=== PATIENT | female | born 1990 | race Caucasian/White ===

== ENCOUNTER 2016-12-24 23:36 | Emergency (ER) | payer BC ==
[2016-12-24 23:42] VITALS: PULSE 91
--- NOTE | 2016-12-25 00:55 | ED ---
General Adult HPI - General Chief complaint: Skin/Abscess/Foreign Body Stated complaint: Hives Time Seen by Provider: 12/25/16 00:43 Source: patient, RN notes reviewed, old records reviewed Mode of arrival: ambulatory Limitations: no limitations - History of Present Illness Initial comments: This is a 26 year old female with pruritic rash over hands, arms, neck and back for 1 month. She thinks this is hives. She reports to taking benadryl with no relief. Denies any history with others with rash. She states that she shares a bed with , denies travel history. Patient reports that she has had no fever, chills, chest pain, shortness of breath, new exposures, nausea, vomiting. - Related Data Previous Rx's Medication Instructions Recorded EPINEPHrine [Epipen 2-Harlan] 0.3 mg IM ONCE PRN #2 ml 12/27/13 Permethrin 5% Cream [Elimite] 1 applic TOPICAL ONCE #1 tube 12/25/16 methylPREDNISolone Dose Pack 4 mg PO DIRECTED #21 package 12/25/16 [Medrol Dose Pack] Allergies Allergy/AdvReac Type Severity Reaction Status Date / Time No Known Allergies Allergy Verified 12/24/16 23:41 Review of Systems ROS Statement: Those systems with pertinent positive or pertinent negative responses have been documented in the HPI. ROS Other: All systems not noted in ROS Statement are negative. Past Medical History Past Medical History: No Reported History History of Any Multi-Drug Resistant Organisms: None Reported Past Surgical History: Appendectomy Past Psychological History: ADD/ADHD, Bipolar Smoking Status: Former smoker Past Alcohol Use History: Occasional General Exam - General Exam Comments Initial Comments: This is a 26 year old female, no distress. Limitations: no limitations General appearance: alert, in no apparent distress Head exam: Present: atraumatic, normocephalic, normal inspection Eye exam: Present: normal appearance, PERRL, EOMI. Absent: scleral icterus, conjunctival injection, periorbital swelling ENT exam: Present: normal exam, mucous membranes moist Neck exam: Present: normal inspection. Absent: tenderness, meningismus, lymphadenopathy Respiratory exam: Present: normal lung sounds bilaterally. Absent: respiratory distress, wheezes, rales, rhonchi, stridor Cardiovascular Exam: Present: regular rate, normal rhythm, normal heart sounds. Absent: systolic murmur, diastolic murmur, rubs, gallop, clicks GI/Abdominal exam: Present: soft, normal bowel sounds. Absent: distended, tenderness, guarding, rebound, rigid Extremities exam: Present: normal inspection, full ROM, normal capillary refill. Absent: tenderness, pedal edema, joint swelling, calf tenderness Back exam: Present: normal inspection Neurological exam: Present: alert, oriented X3, CN II-XII intact Psychiatric exam: Present: normal affect, normal mood Skin exam: Present: warm, dry, intact, normal color, rash (erythematous papular rash with excoriation over back, hands, forearms. Rash in webspace of fingers. Rash consistent with scabies. ) Course Vital Signs 12/24/16 12/25/16 23:39 01:14 Temperature 99.7 F H 98.2 F Pulse Rate 91 91 Respiratory 20 18 Rate Blood Pressure 141/88 140/90 O2 Sat by Pulse 98 98 Oximetry Medical Decision Making - Medical Decision Making This is a 26 year old female with pruritic rash over hands, arms, neck and back for 1 month. She thinks this is hives. She reports to taking benadryl with no relief. Denies any history with others with rash. She states that she shares a bed with , denies travel history. Patient reports that she has had no fever, chills, chest pain, shortness of breath, new exposures, nausea, vomiting. Patient length of symptoms nad not responding to benadryl make this rash seem like Scabies. Patient has erythematous papules between webspace of fingers, and rash clinically looks like scabies vs. hives. Patient was instructed on washing bedding and all clothes in hot water, and to have close contacts treated as well. Patient will also be discharged with medrol dose pack , as this may help with pruritis and if there is underlying hive like reaction. Patient will be discharged and return parameters discussed. Disposition Clinical Impression: Scabies Disposition: HOME SELF-CARE Condition: Good Instructions: Scabies (ED) Additional Instructions: Patient is to watch all clothing and bedding in hot water. Patient is to apply the cream from head to toe and sleep with and on. Shower in the morning. Repeat treatment in one peak. Patient can take Benadryl for itching. He can also use the steroid Dosepak that may help with itching as well. Prescriptions: methylPREDNISolone Dose Pack [Medrol Dose Pack] 4 mg PO DIRECTED #21 package Permethrin 5% Cream [Elimite] 1 applic TOPICAL ONCE #1 tube Referrals: John Olivarez MD [Primary Care Provider] - 1-2 days Time of Disposition: 00:53
[2016-12-25 01:18] VITALS: BP 140/90; RESP 18; TEMP 98.2
== END 2016-12-25 01:20 | disposition home or self-care (01) ==
LOC: EC 23:36
DX: B86 Scabies (principal); Z87.891 Personal history of nicotine dependence
CPT/HCPCS: 99283

== ENCOUNTER → 2017-10-23 | Outpatient (CLI) | payer BC ==
[2017-10-23 12:16] LABS: ALT 50 U/L (9-52); AST 37 U/L (14-36); Albumin 4.8 g/dL (3.5-5.0); Alkaline Phosphatase 70 U/L (38-126); Anion Gap 15 mmol/L; Blood Urea Nitrogen 14 mg/dL (7-17); Calcium 9.7 mg/dL (8.4-10.2); Carbon Dioxide 24 mmol/L (22-30); Chloride 102 mmol/L (98-107); Glucose 95 mg/dL (74-99); Potassium 4.5 mmol/L (3.5-5.1); Sodium 141 mmol/L (137-145); Total Bilirubin 0.8 mg/dL (0.2-1.3); Total Protein 7.6 g/dL (6.3-8.2)
[2017-10-23 16:19] LABS: Parathyroid Hormone Intact 34.9 pg/mL (14.0-72.0); Vitamin D 25 Hydroxy 22.5 ng/mL (30.0-100.0)
[2017-10-23 16:22] LABS: Thyroid Peroxidase Antibodies <28.0 U/mL (0.0-60.0)
== END | disposition home or self-care (01) ==
LOC: LABWHC1 11:14
PROVIDERS: ATTEND Internal Medicine Endocrinology, Diabetes & Metabolism
DX: E83.52 Hypercalcemia (principal); E03.8 Other specified hypothyroidism; N91.2 Amenorrhea, unspecified
CPT/HCPCS: 36415; 80053; 82306; 82670; 83001; 83002; 83970; 84146; 84439; 84443; 84480; 86376

== ENCOUNTER → 2017-12-04 | Outpatient (CLI) | payer BC | END | disposition home or self-care (01) | LOC: LABWHC1 10:31 | PROVIDERS: ATTEND Internal Medicine Endocrinology, Diabetes & Metabolism | DX: E03.8 Other specified hypothyroidism (principal) | CPT/HCPCS: 36415; 84443 ==

== ENCOUNTER → 2019-11-06 | Outpatient (CLI) | payer BC ==
[2019-11-06 15:58] LABS: T4, Free (Free Thyroxine) 1.3 ng/dL (0.80-1.80)
== END | disposition home or self-care (01) ==
LOC: LABWHC1 10:34
PROVIDERS: ATTEND Internal Medicine
DX: E03.9 Hypothyroidism, unspecified (principal)
CPT/HCPCS: 36415; 82947; 84439; 84443; 84481

== ENCOUNTER → 2020-09-19 | Outpatient (CLI) | payer BC ==
--- NOTE | 2020-09-19 10:01 | ECHOF ---
Referral Reason:R07.9 chest pain MEASUREMENTS -------- HEIGHT: 154.9 cm WEIGHT: 86.2 kg BP: RVIDd: 2.9 cm (< 3.3) IVSd: 0.9 cm (0.6 - 1.1) LVIDd: 4.8 cm (3.9 - 5.3) LVPWd: 1.1 cm (0.6 - 1.1) IVSs: 1.5 cm LVIDs: 2.9 cm LVPWs: 1.7 cm LAESV Index (A-L): 18.77 ml/m Ao Diam: 2.7 cm (2.0 - 3.7) AV Cusp: 2.0 cm (1.5 - 2.6) MV EXCURSION: 21.714 mm (> 18.000) MV EF SLOPE: 128 mm/s (70 - 150) EPSS: 0.3 cm MV E Donald: 0.69 m/s MV DecT: 167 ms MV A Donald: 0.49 m/s MV E/A Ratio: 1.42 RAP: 5.00 mmHg RVSP: 22.71 mmHg FINDINGS -------- Sinus rhythm. This was a technically difficult study with suboptimal apical views. The left ventricular size is normal. Left ventricular wall thickness is normal. Overall left vent ricular systolic function is normal with, an EF between 55 - 60 %. The diastolic filling pattern is normal for the age of the patient 7.54. The right ventricle is normal in size. Normal LA size by volume 22+/-6 ml/m2. The right atrium was not well visualized. 5.0mg of Lumason was utilized for enhancement of images Interatrial and interventricular septum intact. There is no evidence of aortic regurgitation. There is no evidence of aortic stenosis. No mitral regurgitation. Mild tricuspid regurgitation present. There is no evidence of pulmonary hypertension. The right v entricular systolic pressure, as measured by Doppler, is 22.71mmHg. Trace/mild (physiologic) pulmonic regurgitation. The aortic root size is normal. IVC Not well visulized. There is no pericardial effusion. CONCLUSIONS -------- 1. The left ventricular size is normal. 2. Left ventricular wall thickness is normal. 3. Overall left ventricular systolic function is normal with, an EF between 55 - 60 %. 4. The diastolic filling pattern is normal for the age of the patient 7.54 5. Mild tricuspid regurgitation present. 6. Trace/mild (physiologic) pulmonic regurgitation. EVP CHIEF EXPLORATION OFFICER: Jennifer Henley RDCS
== END | disposition home or self-care (01) ==
LOC: RADECHMAIN 08:10
PROVIDERS: ATTEND Internal Medicine
DX: I07.1 Rheumatic tricuspid insufficiency (principal); I37.1 Nonrheumatic pulmonary valve insufficiency
CPT/HCPCS: 93306; Q9950

== ENCOUNTER → 2021-12-04 | Outpatient (CLI) | payer BC ==
--- NOTE | 2021-12-04 16:38 | MR ---
EXAMINATION TYPE: MR lumbar spine wo con DATE OF EXAM: 12/04/2021 COMPARISON: None HISTORY: Low back pain TECHNIQUE: Multiplanar, multisequence images of the lumbar spine were acquired without IV contrast. L1-L2: Normal disc appearance without desiccation. No herniation, protrusion or disc bulging. No ca nal stenosis is present. Foramina are patent bilaterally. L2-L3: Normal disc appearance without desiccation. No herniation, protrusion or disc bulging. No ca nal stenosis is present. Foramina are patent bilaterally. L3-L4: Normal disc appearance without desiccation. No herniation, protrusion or disc bulging. No ca nal stenosis is present. Foramina are patent bilaterally. L4-L5: Increased signal posterior aspect of the disc is consistent with annular tear. No significant foraminal encroachment. Posterior disc bulge causes contact the anterior thecal sac. L5-S1: Posterior disc bulge is noted. There is a mild anterolisthesis grade 1 L5-S1. Suspect spondylo lysis at L5 bilaterally. Listhesis contributes to cause some foraminal encroachment. Lumbar segments are intact. No paraspinal masses are identified. Conus medullaris has a normal appe arance. Is no evident spinal stenosis. Loss of disc height signal is present L4-5 and L5-S1, there is associated endplate discogenic marrow signal change. Multiple level Schmorl's node formation is pres ent. 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
== END | disposition home or self-care (01) ==
LOC: RADMRIMAIN 15:25
PROVIDERS: ATTEND Internal Medicine
DX: M51.26 Other intervertebral disc displacement, lumbar region (principal); M43.16 Spondylolisthesis, lumbar region
CPT/HCPCS: 72148

== ENCOUNTER → 2022-04-12 | Outpatient (CLI) | payer BC | END | disposition home or self-care (01) | LOC: LABPAT 10:22 | PROVIDERS: ATTEND Orthopaedic Surgery | DX: Z01.812 Encounter for preprocedural laboratory examination (principal); Z22.322 Carrier or suspected carrier of Methicillin resistant Staphylococcus aureus; M47.816 Spondylosis without myelopathy or radiculopathy, lumbar region; M43.16 Spondylolisthesis, lumbar region | CPT/HCPCS: 87070 ==

== ENCOUNTER → 2022-04-20 | Outpatient (CLI) | payer BC ==
[2022-04-20 14:17] LABS: Basophils # (A) 0.03 X 10*3/uL (0.00-0.10); Basophils % (A) 0.5 %; Eosinophils # (A) 0.14 X 10*3/uL (0.04-0.35); Eosinophils % (A) 2.6 %; HCT 47.7 % (37.2-46.3); HGB 16.3 g/dL (12.0-15.0); Immature Grans, Automated 0.7 %; Lymphocytes # (A) 1.36 X 10*3/uL (0.90-5.00); Lymphocytes % (A) 24.9 %; MCH 30.4 pg (27.0-32.0); MCHC 34.2 g/dL (32.0-37.0); MCV 88.8 fL (80.0-97.0); Mean Platelet Volume 10.4 fL (9.5-12.2); Monocytes # (A) 0.39 X 10*3/uL (0.20-1.00); Monocytes % (A) 7.1 %; NRBC Per 100 WBC 0 /100 WBCS (0.0-0.0); Neutrophils % (A) 64.2 %; Platelet Count 338 X 10*3/uL (140-440); RBC 5.37 X 10*6/uL (4.10-5.20); RDW 12.6 % (11.5-14.5); WBC 5.46 X 10*3/uL (4.50-10.00)
[2022-04-20 14:19] LABS: African American GFR (CKD) 112.9 (60.0-200.0); Anion Gap 15.1 mmol/L (10.00-18.00); BUN/Creat Ratio 15.09 Ratio (12.00-20.00); Blood Urea Nitrogen 12.3 mg/dL (9.0-27.0); Calcium 9.9 mg/dL (8.7-10.3); Carbon Dioxide 23.4 mmol/L (20.0-27.5); Non-African American GFR(CKD) 97.4 (60.0-200.0); Potassium 4.4 mmol/L (3.5-5.5)
[2022-04-20 15:12] LABS: INR 0.88 (0.90-1.11)
== END | disposition home or self-care (01) ==
LOC: LABPAT 09:48
PROVIDERS: ATTEND Orthopaedic Surgery
DX: Z01.812 Encounter for preprocedural laboratory examination (principal)
CPT/HCPCS: 36415; 80048; 85025; 85610; 93005

== ENCOUNTER 2022-04-24 08:30 | Observation (INO) | payer BC ==
[2022-04-16 13:13] VITALS: BMI 32.5
--- NOTE | 2022-04-24 06:33 | P.HPOR ---
History of Present Illness H&P Date: 04/13/22 .D:Date: 04/13/22 : 09:15am .T:Title: [facility] History and Physical Date of :[birth year] Age: 31 year Height: 5'1" Weight: 198 lbs BMI: 37.41 kg/m2 Occupation: Factory VAS: 0 CHIEF COMPLAINT: L5-S1 Spondylolysis DOI:chronic DOS: none Duration of current treatment regiment: none HISTORY: Xrays none Trauma or injury No Work-Related No Pain description aching, sharp, and burning Location diffuse Patient notes that their pain radiates to right lower extremity Activity Modification yes Hand Dominance right TREATMENTS COMPLETED: 6 weeks of PT completed? Month and Year of last PT date? yes, 12 sessions some relief Physician recommended home exercise completed? Duration of HEP course: yes Patient has trialed the physician directed home exercise program for with relief of their symptoms. Medications yes List: Flexeril with relief, Baclofen QHS with mild relief with aid with sleep. no NSAID's, no UMESH-analogs Alternative interventions Chiropractic: No Massage therapy: No R.I.C.E: No Brace: No Injections No RFA: No DELGADO BJECTIVE: Ms. Tristan returns to the office for a pre-operative recheck of their low back pain and planned L5-S1 MIS TLIF. Patient reports no improvements to her symptoms since the time of the last appointment. Patient continues to complain of aching, sharp, burning lumbar pain with diffuse bilateral lower extremity radicular pain and numbness/tingling. Overall the patient has seen a progressive increase in symptoms since their onset. Ms. Tristan symptoms are exacerbated with any st anding, ambulation, or high impact movements like walking up and down stairs, due to this they notes that it is increasingly difficult for Ms. Tristan to complete many of their daily tasks. Patient is having severe sleep disturbances as well due to their ongoing pain and associated symptoms. Regarding treatments, the patient has previously trialed all abovementioned treatment modalities without relief of his symptoms. Patient denies trialing any other modalities at this time. Otherwise the patient denies any f/c/sob/cp, no bladder or bowel retention/incontinence, no perineal numbness/tingling, and ambulates independently. HISTORY: Ms. Tristan last presented to the office on 02/01/2022 for re-check L5-S1 spondylosis. . Patient reports aching, sharp, and burning lumbar pain ongoing for 1 year with no known injury or trauma to indicate an exact onset of their symptoms. In addition to their lumbar pain, they do report that it radiates into the bilateral lower extremities, associated withnumbness and tingling through the legs. Overall the patient has seen a progressive increase in symptoms since their onset. Ms. Tristan symptoms are exacerbated with daily activity, due to this they notes that it is increasingly difficult for Ms. Flores ey to complete many of their daily tasks. Patient is having mild sleep disturbances as well due to their ongoing pain and associated symptoms. Regarding treatments, the patient has previously trialed physical therapy with no relief. Patient denies trialing any other modalities at this time. For their symptoms, the patient has been taking Flexeril. Otherwise the patient denies any f/c/sob/cp, no incision concerns, no bladder or bowel retention/incontinence, no perineal numbness/tingling, and ambulates independently. Ms. Tristan was last seen on 01/29/22 regarding her low back pain.Since last v isit patient states there have been no changes in her symptoms. Patient continues to report a sharp burning lumbar pain that radiates into the right lower extremity associated with numbness and tingling through the leg diffusely. Since her previous visit patient has completed physical therapy. Patient states that using heat therapy slightly relieves her symptoms. Otherwise the patient denies any f/c/sob/cp, no bladder or bowel retention/incontinence, no perineal numbness/tingling, and ambulates independently. Ms. Tristan was last seen on 12/19/21 regarding an evaluation of their low back p ain. Patient reports a sharp, burning lumbar pain ongoing for 1 year with no known injury or trauma to indicate an exact onset of their symptoms. In addition to their lumbar pain, they do report that it radiates into the right lower extremity, associated with numbness and tingling through the leg diffusely. Overall the patient has seen a progressive increase in symptoms since their onset. Ms. Tristan symptoms are exacerbated with prolonged standing and ambulation, due to this they notes that it is increasingly difficult for Ms. Tristan to complete many of their daily tasks. Patient is having mild sleep disturbances as well due to their ongoing pain and associated symptoms. Regarding treatments, the patient has previously trialed home exercises and Baclofen QHS. Patient denies any relief with the home exercises but some mild relief with the Baclofen. Patient denies trialing any other modalities at this time. Otherwise the patient denies any f/c/sob/cp, no bladder or bowel retentio n/incontinence, no perineal numbness/tingling, and ambulates independently. The patients' past social, medical, family, surgical history, as well as review of systems, have been reviewed. Please refer to the Neurosurgery History and Physical form that has been scanned in to our electronic medical record system. 16 points review of systems completed and as stated in HPI, all other systems reviewed are negative. [id number] History: Smoking: none P3 Alcohol: none P3 Family History: Reviewed, see appropriate section of the chart for details. P2 Past Medical History: Reviewed, see appropriate section of the chart for details. [id number] Medications: Rx: cyclobenzaprine 5 mg tablet Ref: 0 Rx: levothyroxine 100 mcg capsule Ref: 0 PHYSICAL EXAMINATION: General: Awake, alert, appropriate for age, in no acute distress. HEENT: No unusual neck masses around region of lateral neck triangle, thyroid, supraclavicular groove Heart: Regular rate and rhythm, normal S1, S2 and no murmur/gallop. Lungs: Clear to auscultation bilaterally with no use of accessory muscles. Extremities: Skin warm and dry without acute lesions, coloration, temperature, skin intact, no tenderness or erythema Integument: Hairy patches: ABSENT Dorsal skin dimples: ABSENT Cafe au lait spots: ABSENT Surgical incisions: NONE Palpation: Please see Pain drawing on Intake sheet for further detail. Midline spinal tenderness: No E6 Cervical Tenderness: No E6 Paralumbar tenderness: No E6 Parathoracic tenderness: No E6 Buttocks tenderness: No E6 POSTURAL and MUSCULO-SKELETAL EVALUATION: Coronal Balance: NEUTRAL Recumbent testing: Patient is able to lay flat on back Sagittal Balance: NEUTRAL Shoulder Profile: LEVEL Pelvic Girdle: LEVEL Neck ROM: UNRESTRICTED Lumbar ROM: RESTRICTED Shoulder ROM: Symmetrical Hip ROM: Symmetrical Knee ROM: Symmetrical Hands: Normal appearance, symmetrical Feet: Normal appearance, Symmetrical VASCULAR STATUS : LEFT RIGHT Wrist Pulses INTACT INTACT Pedal Pulses (Dors. pedis & post.tibialis) INTACT INTACT Color NORMAL NORMAL Edema Absent Absent NEUROLOGIC EXAMINATION: Mental Status:Awake and alert, fully oriented, with normal attention, concentration and memory, and fluent, appropriate speech. Cranial Nerves: I: Olfactory not tested. II: Visual acuity normal, no visual field deficit noted with confrontation. III,IV: Normal pupillary reflexes & intact extraocular movements without nystagmus. V,: Intact symmetrical facial sensation. VII: Intact symmetrical facial motor movement VIII: Hearing intact. IX,X: Intact gag, swallow, & normal voice. XI: Sternocleidomastoid, trapezius function intact. XII: Tongue midline with normal movements. L'hermitte's Sign: Negative / absent Spurling'Sign: Absent bilaterally. Cubital percussion test: Absent bilaterally. Wyman-Tinel sign - Carpal region: Absent bilaterally. Straight Leg Raising: Absent bilaterally. Crossed straight leg raise: negative O8 MOTOR EXAM (0-5/5, N/T) UPPER EXTREMITY Shoulder Abduction Biceps Triceps Wrist Extension Hand Intrinsics Can Washer Right 5/5 5/5 5/5 5/5 5/5 5/5 Left 5/5 5/5 5/5 5/5 5/5 5/5 LOWER EXTREMITY Hip Flexion Knee Extension Knee Flexion DF PF EHL FHL Right 5/5 5/5 5/5 4+/5 4+/5 5/5 5/5 Left 5/5 5/5 5/5 5/5 5/5 5/5 5/5 REFLEXES(0-4/2, NT)Upper ExtremityLower Extremity Right 2 2 Left 2 2 Pathological Reflexes RIGHT LEFT Wyman's Absent Absent Clonus Absent Absent Babinski Absent Absent # Indicates mechanical impairment Muscle appearance: Symmetrical, without signs of atrophy or dystrophy. Sensory system (0-4, N/T) Test type RU CAMMIE RL LL Joint-Position 2 2 2 2 Vibration 2 2 2 2 Pain & LT sense 2 2 2 2 Dermatomal Deficit: None None L5-S1 None Gait and Functional Evaluation: Ambulatory aids: Independent Romberg's test: Intact bilaterally Toe heel walk / heel-toe walk intact while maintaining satisfactory balance? yes Squatting/straightening w/o assistance to a min of 60 degree knee flexion? yes Single leg stance: intact Trendelenburg sign negative bilaterally Hand and finger dexterity intact bilaterally? yes Disdiadochokinesis examination negative bilaterally? yes RADIOGRAPHIC STUDIES: XRay Lumbar Multiview (AP, Lateral, Flexion, Extension) with AP pelvis; 5 views taken on 12/19/21 completed at [facility] of Lumbar Spine and Pelvis: Lumbar spine alignment appears normal. Vertebral body heights are preserved. Diminished disc height throughout. Grade 1 anteriolisthesis L5 onto S1. No acute osseous abnormalities. MRI taken on 12/04/21 at [facility] of Lumbar Spine: Lumbar segments are intact. No paraspinal masses are identified. Conus medullaris has a normal appearance. Is no evident spinal stenosis. Loss of disc height signal is present L4-5 and L5-S1, there is associated endplate discogenic marrow signal change. Multiple level Schmorl's node formation is present. IMPRESSION: Degenerative disc disease as described with anterolisthesis grade 1 L5-S1, suspect bilateral spondylolysis at L5. IMPRESSION: It was my pleasure to have seen and examined Ruma. I reviewed the patient's clinical syndrome, physical findings, and imaging studies during the appointment today. It is my impression that the patient has a diagnosis of. 1. L5-S1 spondylolysis with listhesis 2. right lower extremity paresthesias 3. mechanical lower back pain 4. right lower extremity weakness I outlined the natural course history without intervention and various interventional options. PLAN: Based on my findings I suggest the following course of action: -Ordered a CT scan without contrast of the lumbar spine to further define and outline her bony pathology and for pre-operative planning. - I discussed treatment options with the patient, including operative and non- operative options, and they have elected to proceed with the following surgical procedure: lumbar minimally invasive L5-S1 Transforaminal Lumbar Interbody Fusion The indications, risks, benefits, and alternatives to surgery were discussed with the patient at length. Specifically (but not limited to) the risks of infection, stiffness, recurrence of symptoms, need for revision surgery, local numbness, neurovascular injury, and blood clots were discussed. The patient's questions were answered. The decision to proceed was made. Consent will be obtained for the procedure. I recommended that the patient be off work post op for 6-8 weeks. -Advised patient to continue with supplements, health maintenance, and home exercise programs. Patient expressed understanding and will continue with these modalities. -Ambulate daily -Take medications as directed -Ice and rest for pain and swelling control. Spine Surgery Risk Review Ms. Tristan is presenting for evaluation of low back pain and right lower extrem ity radiculopathy. It was my pleasure to have seen and examined Ms. Tristan. In our visit today we have had a chance to go over subjective complaints, physical examination findings and treatments including the natural course history without intervention and various interventional options. The patients imaging demonstrates: XRay taken on 12/19/21 of Lumbar Spine and Pelvis: Lumbar spine alignment appears normal. Vertebral body heights are preserved. Diminished disc height throughout. Grade 1 anteriolisthesis L5 onto S1. No acute osseous abnormalities. MRI taken on 12/04/21 of Lumbar Spine: Lumbar segments are intact. No paraspinal masses are identified. Conus medullaris has a normal appearance. Is no evident spinal stenosis. Loss of disc height signal is present L4-5 and L5-S1, there is associated endplate discogenic marrow signal change. Multiple level Schmorl's node formation is present. IMPRESSION: Degenerative disc disease as described with anterolisthesis grade 1 L5-S1, suspect bilateral spondylolysis at L5. On physical exam, Ms. Tristan demonstrates severely restricted lumbar range of motion with right lower extremity radiculopathy and weakness with plantarflexion/dorsiflexion. Furthermore the patient does demonstrate L5-S1 right lower extremity dermatomal deficits upon testing. I have explained to the patient that as their condition progresses it will cause further neurological deficits and eventual paralysis. Based on the patients imaging, physical exam, and the rapid progression and disabling nature of their symptoms, at this time I recommend surgery in the form or a: minimally invasive L5-S1 Transforaminal Lumbar Interbody Fusion minimally invasive L5-S1 Transforaminal Lumbar Interbody Fusion. I discussed the risk and benefits of this procedure at length with Ms. Tristan. The patient agreed to considered pursuing the procedure above mentioned. Prior to surgery, she should follow up with her PCP (Cardio, ID, IM etc) for clearance. Questions were invited and answered, and the patient wishes to proceed as outlined below. Currently, I am recommendin. minimally invasive L5-S1 Transforaminal Lumbar Interbody Fusion 2.Follow up with PCP for surgical clearance 3.Review of surgical risks and benefits as well as an educational packet on the proposed surgical procedure. Risks: All surgical procedures come with inherent risks, including those related to positioning, anesthesia, intraoperative findings, and postoperative complications. It is important to understand that surgery does not come with any guarantee of a successful outcome as complications and adverse events are always possible. The patient was given a handout in office today discussing the surgical procedure and risks associated with the intervention, both of which were discussed with the patient. These risks include but are not limited to the following: * Experiencing same, different or even worse symptoms in back, neck, arms, or legs compared to before surgery. Requiring further surgery or other forms of treatment presently or at some time in the future at same or other levels of the intended spine surgery. On an extreme but fortunately relatively rare basis severe complication such as blindness, stroke, heart attack, temporary and/or permanent nerve injury, paralysis, coma, or may occur, sometimes without known explanation. Surgical complications may include but are not limited to risk of infection, fluid accumulation in the surgical dissection site, including a seroma or hematoma, that requires additional surgery, wound drainage, bleeding, new numbness or weakness, vision changes/loss, spinal fluid leakage, non-healing and/or infected incision, headaches, difficulty or inability to swallow, hoarseness, hemopneumothorax, pneumothorax, impotence, retrograde ejaculation, vaginal dryness; injury to nerves, spinal cord, blood vessels, lymphatics or other vital organs (i.e., bowel injury, injury to the great vessels); heterotopic bone formation; complications related to the hardware such as screws, rods, cages including misplaced hardware, device failure, instrumentation at the wrong spine level, hardware fracture/breakage, or hardware loosening; vertebral failure of the spinal column above or below the newly placed hardware; retained surgical instrumentations or devices and the need for further surgery. * Medical risks of the planned spine surgery include but are not limited to generalized Infections to the whole body or local areas outside of the surgical site (sepsis), heart attack, bleeding, anaphylaxis, meningitis, seizure, epilepsy, hearing loss, burn cazares, laceration of the head or other areas of the body, bruising, hypersensitivity of the skin, bladder over distension; allergic reaction; shoulder injury related to positioning; fat, blood and air clots to other areas of the body like heart, lungs, brain; failure of internal organs such as lungs, kidneys, liver and excessive bleed ing. If blood transfusions are necessary, note that transfusions may cause intolerance reactions such as anaphylaxis or other complex reactions. Despite best efforts, the results of spine surgery might not heal in terms of bone, soft tissues such as skin, fascia, ligaments, and joints. Additionally, in order to achieve best possible results, spine surgery may be carried out beyond the initially planned levels and involve decompression, fusion including insertion of hardware at levels other than the original intended area of surgical interest change some portions of the procedure in order to ensure the best possible outcomes. With spine surgery and spinal fusion, there are different off label uses of instrumentation (devices, implants and hardware) as well as biological substances (bone morphogenic proteins, demineralized bone matrix) as well as using extra bone from allograft sources (i.e. cadaver bone) or autograft (iliac crest bone, ribs, or the spine itself). The patient has been given information about these practices and their inherent risks and benefits. [facility] is an educational center that serves as a training facility for neurosurgical and orthopedic PHYS ASSISTANT and Nursing students. Physician assistants are medically trained surgical providers who function in the outpatient, inpatient, and operating room setting under the direct supervision of the attending surgeon. [facility] has multiple operating rooms with single and overlapping rooms running daily. They currently function under the required guidelines as produced by the [facility] with regards to the overlapping rooms and will continue to comply with changes to this policy as they occur. The requirements include and are complied with as follows: (1) the critical portions of the overlapping rooms will not occur at the same time, (2) the attending physician will be physically present during the critical portions of the procedure and immediately available during the entire case, and (3) a back-up attending is designated should the primary attending not be immediately available. The patient has had a chance to review all the listed information, has been given print outs detailing this information, and has had all his/her questions answered to their satisfaction. It was my pleasure to have seen and examined Ms. Tristan. In our visit today we have had a chance to go over my understanding of our patient's current condition, the natural course history without intervention and various interventional options. Questions were invited and answered, and the patient wishes to proceed as outlined above. I have seen and examined the patient for 25 minutes and we have spent more than 50% of the time in repeat and detailed counseling about the patient's condition, its natural course history with out and as much as can be predicted with surgery and re-review of various surgical treatment options. In conclusion, Ms. Tristan requested we proceed with the above suggested surgery and are willing to accept risks and limitations of the suggested surgery as nature of the disease process and our best attempts at treatment for the condition. Thank you again for allowing us to be part of your patient's care. Please don't hesitate to contact me if you have any further questions. Signed and authenticated by: Jose Boggs DO [facility] Complex and Minimally Invasive Spine Surgery [address] [place] [address] Follow- up: 2 weeks post-op Patient Education: (Informational booklet, instructions, etc) given at today's appointment: Yes .ED:Patient Education: Y Plan at next visit: Medications Reviewed: YES In our visit today Ms. Tristan and I have had a chance to go over my understanding of the patient's current condition, the natural course history without intervention and various interventional options. Questions were invited and answered, and the patient wishes to proceed as outlined above. I will be sure to keep you updated afterMs. Tristan returns here for further follow-up. Thank you again for your referral. Please do not hesitate to contact me if you have any further questions. Signed and authenticated by: Jose Velázquez [place] [facility] and Minimally Invasive Spine Surgery [address] [place] [address] This message is confidential, intended only for the named recipient(s) and may contain information that is privileged or exempt from disclosure under applicable law. If you are not the intended recipient(s), you are notified that the dissemination, distribution or copying of this information is strictly prohibited. If you received this message in error, please notify the sender then delete this message. Patient verbalizes understanding of the information discussed. Past Medical History Past Medical History: No Reported History Additional Past Medical History / Comment(s): BACK PAIN History of Any Multi-Drug Resistant Organisms: None Reported Past Surgical History: Appendectomy Past Anesthesia/Blood Transfusion Reactions: No Reported Reaction Smoking Status: Former smoker - Past Family History Mother Family Medical History: No Reported History Medications and Allergies Home Medications Medication Instructions Recorded Confirmed Type Levothyroxine Sodium [Synthroid] 100 mcg PO DAILY 04/16/22 04/16/22 History Allergies Allergy/AdvReac Type Severity Reaction Status Date / Time No Known Allergies Allergy Verified 04/16/22 13:00 Physical Examination Osteopathic Statement: *. No significant issues noted on an osteopathic structural exam other than those noted in the History and Physical/Consult.
[~2022-04-24 08:30] MED LIST: ACETAMINOPHEN TAB 500 MG TAB PO PRN; DEXAMETHASONE SOD PHOSPHATE 4 MG/ML 1 ML VIAL IV ONE; GABAPENTIN 300 MG CAP PO PRN; ONDANSETRON 4 MG/2 ML VIAL IVP PRN; TRANEXAMIC ACID IN NACL,ISO-OS 1,000 MG in SALINE 1 100ML.BAG IVPB PRN
[2022-04-24] MEDS: LACTATED RINGERS 1,000 ML IV SCH (09:40)
[2022-04-24] MEDS: ONDANSETRON 4 MG/2 ML VIAL IVP ONE ×2 (09:44→12:55)
[2022-04-24] MEDS ORDERED: LIDOCAINE 2% INJ 20 MG/ML (2 ML VIAL) ONE (09:57)
[2022-04-24] MEDS ORDERED: TRANEXAMIC ACID IN NACL,ISO-OS 1,000 MG/100 ML BAG ONE (09:57)
[2022-04-24] MEDS ORDERED: MIDAZOLAM 2 MG/2 ML VIAL ONE (09:57)
[2022-04-24] MEDS ORDERED: PROPOFOL 10 MG/ML 20 ML VIAL IV ONE (09:57)
[2022-04-24] MEDS ORDERED: GLYCOPYRROLATE 0.2 MG/ML 2 ML VIAL ONE (09:57)
[2022-04-24] MEDS ORDERED: PHENYLEPHRINE-0.9% NACL SYG 1,000 MCG/10 ML SYRINGE ONE (09:57)
[2022-04-24] MEDS ORDERED: fentaNYL (PF) 50 MCG/ML 2 ML AMP ONE (09:57)
[2022-04-24] MEDS ORDERED: KETAMINE 10 MG/ML 20 ML VIAL ONE (09:57)
[2022-04-24] MEDS ORDERED: SUCCINYLCHOLINE CHLORIDE 200 MG/10 ML VIAL IV ONE (09:57)
[2022-04-24] MEDS ORDERED: ROCURONIUM 10 MG/ML (5 ML VIAL) IV ONE (09:57)
[2022-04-24] MEDS ORDERED: NEOSTIGMINE 1 MG/ML 10 ML VIAL ONE (09:57)
[2022-04-24] MEDS ORDERED: ceFAZolin 3,000 MG in SODIUM CHLORIDE 0.9% IRRIGATIO 3,000 ML IRRIGATION ONE (10:44)
[2022-04-24] MEDS ORDERED: HEPARIN SODIUM 1,000 UN/ML (10ML VL) MISCELLANE ONE (10:46)
[2022-04-24] MEDS ORDERED: GELATIN SPONGE,ABSORB (LARGE) 1 EACH SPONGE MISCELLANE ONE (10:47)
[2022-04-24] MEDS ORDERED: THROMBIN (BOVINE) 5,000 UNIT VIAL MISCELLANE ONE (10:47)
[2022-04-24] MEDS ORDERED: LACTATED RINGERS 1,000 ML IV ONE (11:01)
--- NOTE | 2022-04-24 12:43 | FL ---
EXAMINATION TYPE: FL guided pain mgmt statistic DATE OF EXAM: 04/24/2022 HISTORY: Fluoroscopy time 3 minutes and 23 seconds of fluoroscopy provided. IMPRESSION: 1. Fluoroscopy time.
[2022-04-24] MEDS ORDERED: CYCLOBENZAPRINE 5 MG TAB PO PRN (12:50)
[2022-04-24] MEDS ORDERED: SENNOSIDES-DOCUSATE SODIUM 1 EACH TAB PO PRN (12:50)
[2022-04-24] MEDS ORDERED: ONDANSETRON 4 MG/2 ML VIAL IVP PRN (12:50)
[2022-04-24] MEDS ORDERED: HYDROcodone/APAP 5-325MG 1 EACH TAB PO PRN (12:50)
[2022-04-24] MEDS: HYDROmorphone 0.5 MG/0.5 ML SYRINGE IVP PRN ×4 (12:55→16:39)
--- NOTE | 2022-04-24 13:00 | XR ---
EXAM TYPE: LUMBAR SPINE X RAY SERIES COMPARISON: NONE HISTORY: Intraoperative images TECHNIQUE: 7 views are submitted. FINDINGS: Intraoperative images demonstrate surgical and post surgical change which appears in near anatomic al ignment. IMPRESSION: 1. Postoperative change
--- NOTE | 2022-04-24 16:25 | CT ---
EXAMINATION TYPE: CT lumbar spine wo con DATE OF EXAM: 04/24/2022 4:15 PM COMPARISON: Lumbar spine intraoperative x-ray from earlier today. Outside lumbar spine x-ray December. Lumbar spine MRI December 04, 2021 HISTORY: post-op CT DLP: 920.7 mGycm Automated exposure control for dose reduction was used. Unenhanced CT of the lumbar spine was performed. Bone and soft tissue window settings are submitted as well as coronal and sagittal reconstructions. There are 5 lumbar-type vertebra. There is metallic disc material at L5-S1 level now present. There a re posterior pedicular rods and screws transfixing L5-S1 levels bilaterally now present. Stable minim al grade 1 retrolisthesis L4 on L5. Vertebral body is disc space heights are satisfactory above the L 5 surgical level. Review of axial images shows the L5 screws bilaterally to minimally penetrate the anterior vertebral body margin. There is new right-sided laminectomy defect at L5 level. Left L5 level shows suspected c hronic pars defect. Mild broad disc bulge at L4-L5 level remains present axial image 57. No suspicious incidental finding in the visualized abdomen or pelvis. Sutures from appendectomy seen in the right lower quadrant. Posterior ill-defined fluid and subcutaneous gas from recent surgery is noted centered at L3-L4 level. IMPRESSION: Interval surgery at L5-S1 level as detailed above.
[2022-04-24] MEDS: ACETAMINOPHEN TAB 325 MG TAB PO SCH (17:29)
[2022-04-24] MEDS: GABAPENTIN 100 MG CAP PO SCH (22:43)
[2022-04-24] MEDS: HYDROcodone/APAP 7.5-325MG 1 EACH TAB PO PRN (23:01)
[2022-04-25] MEDS: ACETAMINOPHEN TAB 325 MG TAB PO SCH ×5 (00:50→23:48)
[2022-04-25] MEDS: LACTATED RINGERS 1,000 ML IV SCH (08:12)
[2022-04-25] MEDS: GABAPENTIN 100 MG CAP PO SCH ×2 (08:15→20:37)
[2022-04-25] MEDS: HYDROcodone/APAP 7.5-325MG 1 EACH TAB PO PRN ×2 (08:15→20:37)
[2022-04-25 08:38] LABS: Basophils # (A) 0.03 X 10*3/uL (0.00-0.10); Basophils % (A) 0.3 %; Eosinophils # (A) 0.05 X 10*3/uL (0.04-0.35); Eosinophils % (A) 0.5 %; HCT 38.8 % (37.2-46.3); HGB 13.3 g/dL (12.0-15.0); Immature Grans, Automated 0.5 %; Lymphocytes # (A) 1.66 X 10*3/uL (0.90-5.00); Lymphocytes % (A) 15.4 %; MCH 30.4 pg (27.0-32.0); MCHC 34.3 g/dL (32.0-37.0); MCV 88.6 fL (80.0-97.0); Mean Platelet Volume 10.3 fL (9.5-12.2); Monocytes # (A) 0.76 X 10*3/uL (0.20-1.00); Monocytes % (A) 7.1 %; NRBC Per 100 WBC 0 /100 WBCS (0.0-0.0); Neutrophils # (A) 8.23 X 10*3/uL (1.80-7.70); Neutrophils % (A) 76.2 %; Platelet Count 296 X 10*3/uL (140-440); RBC 4.38 X 10*6/uL (4.10-5.20); RDW 12.5 % (11.5-14.5); WBC 10.78 X 10*3/uL (4.50-10.00)
[2022-04-25 09:11] LABS: African American GFR (CKD) 135.7 (60.0-200.0); Anion Gap 12.2 mmol/L (10.00-18.00); BUN/Creat Ratio 15.43 Ratio (12.00-20.00); Blood Urea Nitrogen 10.8 mg/dL (9.0-27.0); Calcium 8.7 mg/dL (8.7-10.3); Carbon Dioxide 21.8 mmol/L (20.0-27.5); Non-African American GFR(CKD) 117.1 (60.0-200.0); Potassium 4.3 mmol/L (3.5-5.5)
--- NOTE | 2022-04-25 09:11 | P.PN ---
Subjective Progress Note Date: 04/25/22 Principal diagnosis: L5-S1 spondylolysis with listhesis Right lower extremity paresthesias Right lower extremity weakness Mechanical lower back pain Patient seen and examined at bedside. Patient was resting in bed. She reports that her pain is managed on current regimen. Surgical dressing is clean dry and intact. Patient states she has been ambulatory within room with no difficulty. She was able to reposition herself in bed. Patient states she does feel more stable in her lower back when up and about. We will reassess patient later this afternoon to see if she is comfortable with discharge. Patient denies any fevers/chills, nausea/vomiting, or chest pain. Objective - Vital Signs Vital signs: Vital Signs Temp 97.4 F L 04/25/22 07:29 Pulse 85 04/25/22 07:29 Resp 16 04/25/22 07:29 BP 100/64 04/25/22 07:29 Pulse Ox 98 04/25/22 07:29 FiO2 Intake & Output 04/24/22 04/25/22 04/25/22 18:59 06:59 18:59 Intake Total 2000 Output Total 475 Balance 1526 Weight 74.5 kg Intake: IV 2000 Output: Urine 400 Estimated Blood Loss 75 Other: # Voids 2 1 - Exam Physical Examination General: The patient is awake and alert, in no acute distress Skin: Skin is warm and dry with no obvious rashes or lesions. Hairy patches absent, no dorsal skin dimples, no cafe au lait spots. Surgical incision to lumbar region, dressing CDI. Eye: Pupils are equal, round and reactive to light, extra-ocular movements are intact; there is normal conjunctiva bilaterally. Neck: The neck is supple, there is no tenderness and ROM intact. Cardiovascular: There is a regular rate and rhythm. No murmur, rub or gallop is appreciated. Respiratory: Lungs are clear to auscultation, respirations are non-labored, breath sounds are equal. Gastrointestinal: Soft, non-distended, non-tender abdomen. Back: There is no tenderness to palpation in the midline, paralumbar, parathoracic or buttocks region. There is no obvious deformity . Musculoskeletal: ROM limited secondary to pain and stiffness from surgical procedure. Muscle strength in all major muscle groups of bilateral upper ex tremities 5/5, bilateral lower extremities 4/5. Neurological: CN 2-12 intact. There are no obvious motor or sensory deficits. Movement and coordination equal and intact. Sensory exam to light touch intact C5-T1 and intact from L2-S1. Reflexes 2/4 in bilateral upper and lower extremities. Negative Hoffmans, babinski, and clonus signs. Psychiatric: Cooperative, appropriate mood & affect, normal judgment. - Labs CBC & Chem 7: 04/25/22 04:40 Labs: Abnormal Lab Results - Last 24 Hours (Table) 04/25/22 Range/Units 04:40 WBC 10.78 H (4.50-10.00) X 10*3/uL Immature Gran # 0.05 H (0.00-0.04) X 10*3/uL Neutrophils # 8.23 H (1.80-7.70) X 10*3/uL Assessment and Plan Assessment: L5-S1 spondylolysis with listhesis Right lower extremity paresthesias Right lower extremity weakness Mechanical lower back pain -Postop day 1: L5-S1 TLIF Plan: -Appreciate process improvement consultant and team management. -Activity: Ambulate QID, OOB all meals, up and about, limit lifting bending twisting to less than 5 lbs. Use walker or cane if needed for stability. -Daily PT/OT, increase ambulation strength and balance. -Pain control: Adequate at this time -Meds: reviewed -GI ppx: senna, Miralax -DVT PPX: OK to restart Heparin tonight -Hygiene: Shower today. Maintain dressing clean and dry. Meticulous cleaning after BMs away from the incision site -Encourage IS 10x/hr -Dispo: Anticipate discharge home with homecare today or tomorrow. *I reviewed and discussed this case with my attending Dr. Boggs, whom has reviewed this chart and films and is in agreement with assessment and plan of care as outlined above. I have personally seen and examined the patient, performed the documentation and the assessment and plan as written. Number of minutes spent on the visit:15m.
--- NOTE | 2022-04-25 10:11 | P.OP ---
Date of Procedure: 04/24/22 Preoperative Diagnosis: 1. L5-S1 spondylolysis with Grade II spondylolisthesis 2. Mechanical low back pain 3. LE weakness with radiculopathy Postoperative Diagnosis: 1. L5-S1 spondylolysis with Grade II spondylolisthesis 2. Mechanical low back pain 3. LE weakness with radiculopathy Procedure(s) Performed: 1. L5-S1 posteriolateral and interbody fusion (18160) 2. INsertion of biomechanical device L5-S1 (97066) 3. Instrumentation L5-S1 (55997) 4. L5-S1 extradural decompression, laminectomy, facetectomy and foraminotomies more than that needed for cage placement (82037) Use of IONM Use of microscope Implants: -Globus Creo screws -Zivation expandable cage -Allograft -Autograft _Allocel -MagnatOs -iFactor Anesthesia: YUEA Surgeon: Jose Boggs Lathe Mechanic #1: Rodolfo Weaver (Was present and assisted with all aspects of the case from positioning to dressing) Estimated Blood Loss (ml): 75 IV fluids (ml): 1,500 Urine output (ml): 200 Pathology: none sent Condition: stable Disposition: PACU Indications for Procedure: Ms. Tristan is presenting for evaluation of low back pain and right lower extremity radiculopathy. It was my pleasure to have seen and examined Ms. Tristan. In our visit today we have had a chance to go over subjective complaints, physical examination findings and treatments including the natural course history without intervention and various interventional options. The patients imaging demonstrates: XRay taken on 12/19/21 of Lumbar Spine and Pelvis: Lumbar spine alignment appears normal. Vertebral body heights are preserved. Diminished disc height throughout. Grade 1 anteriolisthesis L5 onto S1. No acute osseous abnormalities. MRI taken on 12/04/21 of Lumbar Spine: Lumbar segments are intact. No paraspinal masses are identified. Conus medullaris has a normal appearance. Is no evident spinal stenosis. Loss of disc height signal is present L4-5 and L5-S1, there is associated endplate discogenic marrow signal change. Multiple level Schmorl's node formation is present. IMPRESSION: Degenerative disc disease as described with anterolisthesis grade 1 L5-S1, suspect bilateral spondylolysis at L5. On physical exam, Ms. Tristan demonstrates severely restricted lumbar range of motion with right lower extremity radiculopathy and weakness with plantarfl exion/dorsiflexion. Furthermore the patient does demonstrate L5-S1 right lower extremity dermatomal deficits upon testing. I have explained to the patient that as their condition progresses it will cause further neurological deficits and eventual paralysis. Based on the patients imaging, physical exam, and the rapid progression and disabling nature of their symptoms, at this time I recommend surgery in the form or a: minimally invasive L5-S1 Transforaminal Lumbar Interbody Fusion minimally invasive L5-S1 Transforaminal Lumbar Interbody Fusion. I discussed the risk and benefits of this procedure at length with Ms. Tristan. The patient agreed to considered pursuing the procedure above mentioned. Prior to surgery, she should follow up with her PCP (Cardio, ID, IM etc) for clearance. Questions were invited and answered, and the patient wishes to proceed as outlined below. Currently, I am recommendin. minimally invasive L5-S1 Transforaminal Lumbar Interbody Fusion Description of Procedure: The patient was seen and examined in the preoperative area. All preoperative protocols were followed. Informed consent was obtained risks and benefits of the procedure were discussed at length. Risks including bleeding infection damage to the surrounding tissue and risk of reoperation were discussed with the patient. Risk of anesthesia up to and including was a discussed with the patient. These are outlined in the risk review. They were willing to accept these risks and all of the risks of surgery. The patient was given a weight- based dose of antibiotics in the form of [antibiotic]. The patient was seen and evaluated by the anesthesia team who deemed them fit for surgery. The site was marked, the patient was willing to proceed with the procedure. The patient was transferred to the operative suite by the Department of anesthesia. They were then drifted off to sleep by the department anesthesia and GETA was performed. The patient tolerated this well. [Solis catheter was placed by nursing staff, atraumatically]. Once confirmation of lines and ventilation the patient was transferred to a prone [place] table very carefully. All bony prominences including wrists, elbows, axilla, chest, hips, and thighs, and feet were padded very well. Special attention was paid to the genitalia and these were padded accordingly. SCDs were placed on bilateral lower extremities and were connected. Arms were well padded and placed [on arm boards up and out in the 90/90 position]. Once in position, again we confirmed good ventilation capabilities and that lines were running appropriately. The patient's lumbar spine was then exposed. 1010s were placed outlining the incision site. Standard alcohol was used to clean the incision site and allowed to dry. C-arm was used to biomark the patient and confirm level for incision which was marked with a skin marker. Operative briefing was performed with all teams and everyone in agreement to proceed. The patient was then prepped and draped in a normal sterile fashion. Timeout was then performed and all parties were in agreement with the procedure to be performed. Fluoroscopic guidance was then used to place a tubular retractor system in an optimal position on the right-hand side of the patient at L5-S1. Skin incision was made and sequential dilation taken down to the [id number] facet joints and pars. Once the tubular retractor system was in a good position AP and lat eral imaging confirmed its positioning. The operating microscope was then brought in for visualization. We then performed limited myomectomy which uncovered the facet joints [and revealed a pars defect at the L4 pars]. We have performed a L-shaped cut over the lamina and inferior articular facet of L5 using a high-speed bur. This loosened the facet. Osteotome was then used to complete this cut and the facet was removed entirely [along with the pars defect]. We then performed high-speed bur cut transversely over the superior articular facet of S1 osteotome was then used to complete this cut and this opened up the foramen in this area for a pedicle to pedicle decompression. We finished our medial decompression with a 3 Kerrison performing an extra dural decompression of neural elements. The ligamentum flavum was removed as it was compressive in pathology. An [id number] decompression was then performed using Kerrison rongeurs. We then turned our attention back to the foramen the disc was identified the foraminal ligament was removed and the neural elements were mobilized this mobilization allowed for protection the disc space was identified. An osteotome was then used to access the disc space and under lateral fluoroscopic guidance it was advanced until it was centered in A to P view and anterior on the lateral view. We then perform sequential shaving until endplates were clear of any cartilage and disc material had been removed pituitary was used to remove any further free disc material. Down-biting curet was used to scrape endplates and to reach across midline to remove further disc material across midline. We then used blunt trials to trial the size implant desired. A [12] mm trial was placed and it had good fit and showed good lift and reduction. This was removed. We then irrigated the disc space. A mixture of autograft and allograft was then placed anterior within the disc space and impacted using a blunt trial. The cage was then selected and while protecting neural elements the cage was impacted into position under lateral fluoroscopic guidance. It was then expanded until it met the endplates and created good lift and reduction. The cage was tested and it was stable. Cages then back filled with DBM putty. The end user support specialist was removed and the cage was then visualized and tested again it was stable and in good position. AP confirmed good central position. We then irrigated out the area perform meticulous hemostasis inspected the area for any issues and everything was stable. There were no dural tears there was good decompression of the extradural elements. The tubular retractor system was then carefully removed under direct visualization. We then turned our attention to placement of screws [employer]'s spine mask navigation was used for the placement of screws at L5-S1. Biplanar fluoroscopy was used to advance Jamshidi within the vertebral bodies and a wire placed in its Avoid. The perfect scalpel was used over these wires to create a path. Screws were then measured and placed over these wires using a navigated screwdriver. Once the screw was at the back of the body the wire was pulled and screws were advanced until an optimal position. Once screws were in place they were tested and all tested above 20 mA. With screws in position we measured for a marty once the marty was measured was selected and the marty was placed subfascially bilaterally. We then lock set screws into S1 bilaterally and sequentially reduced set screws into L5 bilaterally for spondylolisthesis reduction this was done under lateral fluoroscopic guidance. This showed [good reduction of listhesis as well as] maintenance of height and decompression. Set screws were then final tightened using torque limiter. Tabs were then broken and confirmed to be removed. Final imaging was then taken AP and lateral confirmed good placement of screws as well as cage with good reduction of listhesis in good decompression. bur was used to decorticate posterior laterally and MagnatOs and bone graft was placed posterior lateral to the screws. Wounds were then copiously irrigated with normal sterile saline. Deep fascia was closed with 0 Vicryl superficial subcu tissue closed with 2-0 Vicryl and skin closed with skin tiesha. Wound edges approximated very well. The wound was then cleaned and dressed sterilely with operative foam dressings. The patient was transferred back to their hospital bed atraumatically. Patient was then awakened and extubated by the department of anesthesia having tolerated the procedure very well with no complications. They were transferred to the postoperative care unit in stable condition.
[2022-04-25] MEDS: FAMOTIDINE 20 MG TAB PO SCH ×2 (13:52→20:37)
--- NOTE | 2022-04-25 15:37 | P.CONS ---
History of Present Illness - Reason for Consult Consult date: 04/25/22 Medical management postop L5-S1 TLIF - History of Present Illness This is a 31-year-old female who was recently admitted under orthopedic services Dr. Boggs for L5 to S1 spondylolysis with listhesis with right lower extremity paresthesias and weakness and continued ongoing back pain. Patient reports she follows with Dr. Henriquez in the outpatient setting with a past medical history of ADD/ADHD, hypothyroid, GERD. Patient reports she is a former smoker and continues to use marijuana and occasionally drinks and denies any other illicit drug use. Patient has been having back pain and been seeing orthopedics outpatient opted for surgical intervention as pain was not improving. Patient is postop TLIF fusion of L5-S1 postop day #1. Patient is afebrile denies chest pain or shortness of breath. WBC this morning mildly elevated at 10.78 most likely reactive hemoglobin and platelets are stable. Sodium slightly low of 131 although BMP is normal. Encouraged oral intake and pain management per primary service. On exam patient was reporting some acid reflux and have ordered Pepcid twice a day. Current increase activity as tolerated with restrictions per orthopedics. We will continue to follow with orthopedics during this hospitalization. Review Of Systems: Constitutional: No fever, no chills, no night sweats. No weight change. No weakness, fatigue or lethargy. No daytime sleepiness. EENT: No headache. No blurred vision or double vision, no loss of vision. No loss of Hearing, no ringing in the ears, no dizziness. No nasal drainage or congestion. No epistaxis. No sore throat. Lungs: No shortness of breath, cough, no sputum production. No wheezing. Cardiovascular: No chest pain, no lower extremity edema. No palpitations. No paroxysmal nocturnal dyspnea. No orthopnea. No lightheadedness or dizziness. No syncopal episodes. Abdominal: No abdominal pain. No nausea, vomiting. No diarrhea. No constipation. Reports acid reflux. No bloody or tarry stools.. No loss of appetite. Reports passing minimal gas with no bowel movement as of yet Genitourinary: No dysuria, increased frequency, urgency. No urinary retention. Musculoskeletal: No myalgias. No muscle weakness, no gait dysfunction, no frequent falls. Reports lower back pain. No neck pain. Integumentary: No wounds, no lesions. No rash or pruritus. No unusual bruising. No change in hair or nails. Neurologic: No aphasia. No facial droop. No change in mentation. No head injury. No headache. No paralysis. No paresthesia. Psychiatric: No depression. No anxiety. No mood swings. Endocrine: No abnormal blood sugars. No weight change. No excessive sweating or thirst. No cold intolerance. PHYSICAL EXAMINATION: GENERAL: The patient is alert and oriented x4, Well developed, well nourished. HEENT: Pupils are round and equally reacting to light. EOMI. no scleral icterus. No conjunctival pallor. Normocephalic, atraumatic. No pharyngeal erythema. No thyromegaly. CARDIOVASCULAR: S1 and S2 muffled PULMONARY: diminished breath sounds bilaterally with no wheezing or rhonchi noted. ABDOMEN: soft. Nontender on exam. obese. non-distended, normoactive bowel sounds. No palpable organomegaly. MUSCULOSKELETAL: No joint swelling or deformity. EXTREMITIES: No cyanosis, clubbing, or pedal edema. NEUROLOGICAL: Gross neurological examination did not reveal any focal deficits. Diffuse weakness SKIN: No rashes. Assessment: Lower back pain status post L5 to S1 TLIF fusion Gastroesophageal reflux disease Mild leukocytosis, most likely reactive secondary to surgery no fever or signs of infection noted History of ADD/ADHD THC use Obesity with a body mass index of 31.0 Former smoker GI prophylaxis DVT prophylaxis Full code Plan: Recommend to continue with current medications and management per orthopedic services. Patient is to be seen and evaluated by PT/OT therapy and continue with pain management per orthopedics. Patient continues to report some pain of her lower back. Patient also having some acid reflux have ordered Pepcid and patient reports she does have history of GERD but doesn't normally take anything for this. Patient with incentive spirometer at the bedside encourage the patient continue using at least 10 times every hour while awake. Appropriate home medications resumed. Patient encouraged to increase activity as tolerated and get up and walk more with restrictions per orthopedics. We will continue to follow with orthopedics during hospitalization. Thank you kindly for this consultation. The impression and plan of care has been dictated by Marcia Parish, nurse practitioner as directed. Dr.Vegesna JONES I have performed a history and examination and MDM of this patient, discussed the same with the dictator, and agree with the dictator's assessment and plan as written ,documented as a scribe. Based on total visit time, I have performed more than 50% of the visit. Any additional findings or plans will be noted. Past Medical History Past Medical History: No Reported History Additional Past Medical History / Comment(s): BACK PAIN History of Any Multi-Drug Resistant Organisms: None Reported Past Surgical History: Appendectomy Past Anesthesia/Blood Transfusion Reactions: No Reported Reaction Past Psychological History: ADD/ADHD, Bipolar Additional Psychological History / Comment(s): NO MEDS AT THIS TIME Smoking Status: Former smoker Past Alcohol Use History: Occasional Additional Past Alcohol Use History / Comment(s): QUIT SMOKING 2015 Past Drug Use History: Marijuana Additional Drug Use History / Comment(s): USES MARIJUANA ON OCCASION-INSTRUCTED TO REFRAIN FROM USE FOR AT LEAST 24 HOURS PRIOR TO PROCEDURE - Past Family History Mother Family Medical History: Diabetes Mellitus Medications and Allergies Home Medications Medication Instructions Recorded Confirmed Type Levothyroxine Sodium [Synthroid] 100 mcg PO DAILY 04/16/22 04/24/22 History Allergies Allergy/AdvReac Type Severity Reaction Status Date / Time No Known Allergies Allergy Verified 04/24/22 09:14 Physical Exam Vitals: Vital Signs Temp Pulse Resp BP Pulse Ox 04/25/22 07:29 97.4 F L 85 16 100/64 98 04/25/22 02:31 97.9 F 82 18 104/66 98 04/24/22 21:15 98.9 F 79 16 98/64 98 04/24/22 16:46 98.7 F 110 H 16 123/76 98 04/24/22 15:20 96 17 104/57 96 04/24/22 15:05 95 17 102/58 93 L 04/24/22 14:47 92 17 101/58 94 L 04/24/22 14:30 101 H 16 100/56 94 L 04/24/22 14:15 108 H 14 119/63 95 04/24/22 13:50 90 14 117/63 96 04/24/22 13:36 92 16 119/62 99 04/24/22 13:25 106 H 16 122/66 99 04/24/22 13:12 97 16 119/56 99 04/24/22 13:07 103 H 16 132/60 99 04/24/22 13:01 108 H 16 125/58 99 04/24/22 12:56 103 H 16 120/59 99 04/24/22 12:43 97.6 F 109 H 15 116/60 100 04/24/22 09:30 98.6 F 98 16 122/79 98 Intake and Output 04/24/22 04/25/22 04/25/22 22:59 06:59 14:59 Other: # Voids 2 1 Weight 74.5 kg Results CBC & Chem 7: 04/25/22 04:40 04/25/22 04:40 Labs: Abnormal Lab Results - Last 24 Hours (Table) 04/25/22 04/25/22 Range/Units 04:40 04:40 WBC 10.78 H (4.50-10.00) X 10*3/uL Immature Gran # 0.05 H (0.00-0.04) X 10*3/uL Neutrophils # 8.23 H (1.80-7.70) X 10*3/uL Sodium 131 L (135-145) mmol/L Glucose 368 H (70-110) mg/dL
[2022-04-26] MEDS: HYDROcodone/APAP 7.5-325MG 1 EACH TAB PO PRN (02:08)
[2022-04-26 02:51] VITALS: RESP 16
[2022-04-26] MEDS: ACETAMINOPHEN TAB 325 MG TAB PO SCH ×2 (06:01→11:19)
[2022-04-26] MEDS: LACTATED RINGERS 1,000 ML IV SCH (06:07)
[2022-04-26] MEDS ORDERED: LEVOTHYROXINE 100 MCG TAB PO SCH (06:30)
--- NOTE | 2022-04-26 08:38 | P.PN ---
Subjective Progress Note Date: 04/26/22 Principal diagnosis: L5-S1 spondylolysis with listhesis Right lower extremity paresthesias Right lower extremity weakness Mechanical lower back pain Patient seen and examined at bedside. Patient was resting in bed laying on her right side. Surgical dressing is clean dry and intact. Patient states she has been tolerating activity well. She states that since the procedure the numbness and tingling in right lower extremity is no longer present. Patient states she is ready to go home today. Patient denies any fevers/chills, nausea/vomiting, or chest pain. Objective - Vital Signs Vital signs: Vital Signs Temp 98.2 F 04/26/22 02:02 Pulse 94 04/26/22 02:02 Resp 16 04/26/22 02:02 BP 99/65 04/26/22 02:02 Pulse Ox 98 04/26/22 02:02 FiO2 Intake & Output 04/25/22 04/26/22 04/26/22 18:59 06:59 18:59 Intake Total 840 Balance 840 Intake: Oral 840 Other: # Voids 3 1 - Exam Physical Examination General: The patient is awake and alert, in no acute distress Skin: Skin is warm and dry with no obvious rashes or lesions. Hairy patches absent, no dorsal skin dimples, no cafe au lait spots. Surgical incision to lumbar region, dressing CDI. Eye: Pupils are equal, round and reactive to light, extra-ocular movements are intact; there is normal conjunctiva bilaterally. Neck: The neck is supple, there is no tenderness and ROM intact. Cardiovascular: There is a regular rate and rhythm. No murmur, rub or gallop is appreciated. Respiratory: Lungs are clear to auscultation, respirations are non-labored, breath sounds are equal. Gastrointestinal: Soft, non-distended, non-tender abdomen. Back: There is no tenderness to palpation in the midline, paralumbar, parathoracic or buttocks region. There is no obvious deformity . Musculoskeletal: ROM limited secondary to pain and stiffness from surgical procedure. Muscle strength in all major muscle groups of bilateral upper extremities 5/5, bilateral lower extremities 4/5. Neurological: CN 2-12 intact. There are no obvious motor or sensory deficits. Movement and coordination equal and intact. Sensory exam to light touch intact C5-T1 and intact from L2-S1. Reflexes 2/4 in bilateral upper and lower extremities. Negative Hoffmans, babinski, and clonus signs. Psychiatric: Cooperative, appropriate mood & affect, normal judgment. - Labs CBC & Chem 7: 04/25/22 04:40 04/25/22 04:40 Labs: Abnormal Lab Results - Last 24 Hours (Table) 04/25/22 04/25/22 Range/Units 04:40 04:40 WBC 10.78 H (4.50-10.00) X 10*3/uL Immature Gran # 0.05 H (0.00-0.04) X 10*3/uL Neutrophils # 8.23 H (1.80-7.70) X 10*3/uL Sodium 131 L (135-145) mmol/L Glucose 368 H (70-110) mg/dL Assessment and Plan Assessment: L5-S1 spondylolysis with listhesis Right lower extremity paresthesias Right lower extremity weakness Mechanical lower back pain -Postop day 2: L5-S1 TLIF Plan: -Appreciate custom decorating consultant and team management. -Activity: Ambulate QID, OOB all meals, up and about, limit lifting bending twisting to less than 5 lbs. Use walker or cane if needed for stability. -Daily PT/OT, increase ambulation strength and balance. -Pain control: Adequate at this time -Meds: reviewed -GI ppx: senna, Miralax -DVT PPX: Heparin -Hygiene: Shower today. Maintain dressing clean and dry. Meticulous cleaning after BMs away from the incision site -Encourage IS 10x/hr -Dispo: Anticipate discharge home with homecare today. *I reviewed and discussed this case with my attending Dr. Boggs, whom has reviewed this chart and films and is in agreement with assessment and plan of care as outlined above. I have personally seen and examined the patient, performed the documentation and the assessment and plan as written. Number of minutes spent on the visit: 15m.
[2022-04-26] MEDS: GABAPENTIN 100 MG CAP PO SCH (09:00)
[2022-04-26] MEDS: FAMOTIDINE 20 MG TAB PO SCH (09:00)
--- NOTE | 2022-04-26 09:59 | P.DS ---
Providers Date of admission: 04/26/22 07:15 Expected date of discharge: 04/26/22 Attending physician: Jose Boggs DO Consults: 04/24/22 12:53 Consult Physician Routine Consulting Provider: [place] Reason/Comments: Medical Management Do you want consulting provider notified?: Yes Primary care physician: Florence Shin [facility] Course: Hospital Course: The patient was evaluated preoperatively and found to have the diagnosis of lumbar spondylosis with stenosis. They underwent appropriate preoperative care and were willing to undergo the intended procedure. They underwent a successful L5-S1 TLIF, were recovered appropriately and sent to the floor. While on the floor they worked with physical therapy, occupational therapy and nursing to enhance their recovery experience. Their pain was well controlled through their stay and they were started on appropriate medications, DVT ppx modalities, activity and dietary needs. Daily labs were monitored closely, and transfusions were only used when necessary. Medicine as well as other consulting services have made their input and have helped with our team approach and multidisciplinary care. PT milestones have been met and passed and they have made the recommendation of home with home care for this patient and treating providers agree with this care path. The patient will be discharged home with appropriate medications, instructions and follow-up information and in stable condition. Patient Condition at Discharge: Good Plan - Discharge Summary Discharge Rx Participant: Yes New Discharge Prescriptions: New cefaDROXiL [Duricef] 500 mg PO Q12HR 3 Days #6 cap Cyclobenzaprine [Flexeril] 5 mg PO TID #90 tablet Sennosides/Docusate Sodium [Senna Plus 8.6-50 mg Tablet] 1 each PO DAILY PRN #20 tablet PRN Reason: Constipation Gabapentin [Neurontin] 300 mg PO BID #60 cap HYDROcodone/APAP 7.5-325MG [Thor 7.5] 1 tab PO Q4-6H PRN #56 tab PRN Reason: Pain No Action Levothyroxine Sodium [Synthroid] 100 mcg PO DAILY Discharge Medication List Levothyroxine Sodium [Synthroid] 100 mcg PO DAILY 04/16/22 [History] Cyclobenzaprine [Flexeril] 5 mg PO TID #90 tablet 04/26/22 [Rx] Gabapentin [Neurontin] 300 mg PO BID #60 cap 04/26/22 [Rx] HYDROcodone/APAP 7.5-325MG [Thor 7.5] 1 tab PO Q4-6H PRN #56 tab 04/26/22 [Rx] Sennosides/Docusate Sodium [Senna Plus 8.6-50 mg Tablet] 1 each PO DAILY PRN #20 tablet 04/26/22 [Rx] cefaDROXiL [Duricef] 500 mg PO Q12HR 3 Days #6 cap 04/26/22 [Rx] Follow up Appointment(s)/Referral(s): Norris Henriquez MD [Primary Care Provider] - 1 Week Jose Boggs DO [Doctor of Osteopathic Medicine] - 05/03/22 9:30 am Activity/Diet/Wound Care/Special Instructions: Spine Discharge and Recovery Instructions Date of Surgery: 04/24/2022 Diagnosis: Lumbar spondylosis with stenosis Procedure: L5-S1 TLIF Medications: See medication list All medication refills should be obtained through your primary care doctor or your clinic spine surgeon. Please discuss prescription refills at your follow up appointment. Do not call the hospital for medication refills. Dressing: Leave your dressing in place for a total of 5 days post operatively. Then you may remove your dressing and leave open to air. Keep the area clean and if not able to keep area clean, then cover with sterile gauze and tape. Showering: You may shower 3 days after your procedure allowing soap and water to run over incision. Do not scrub. Do not soak. Blot dry. Follow up: Please confirm a follow up appointment with your surgeon 3 weeks post operatively. Please make an appointment to follow up with your PCP in 1-2 weeks after surgery for evaluation 3 phase, 3-week plan POST OP WEEKS 1-3 1. Lifting/carrying/pushing/pulling limited to less than 5 pounds. 2. Do not sit for longer than 15 minutes at one time. Get up and walk around. Prolonged sitting is NOT advised. If you lay down, see if you can tolerate laying down on you front (belly side) 3. Walk for periods of 15 minutes = 1 mile but no longer; do it multiple times times each day. 4. Ice your low back after activity. POST OP WEEKS 3-6 1. Lifting limited to less than 20 pounds. 2. Do not sit for longer than 30 minutes at a time. Frequently change positions. Use a sit-to stand workstation or take frequent breaks from sitting if you have returned to work. 3. Walk for 30 minutes each day. If possible, do these three or more times a day POST OP WEEKS 6+ At your 6-week appointment we will give you a physical therapy referral to focus on a core stabilization and strengthening program. You should also work on leg & buttock strengthening, hamstring & quadriceps stretching, and continue a low impact aerobic activity program such as swimming, walking, or riding a stationary bicycle. During the initial 6 weeks after your surgery, you are at the highest risk of re-injuring your spine. You should generally avoid BLTs (bending, lifting and twisting combination motions) and follow the above guidelines to reduce the chance of reinjury. You can anticipate post op appointments in our office at approximately 3 weeks and 6 weeks after your surgery. INCISION CARE: If your incision is not draining you do NOT need to cover it with a dressing. Keep your incision clean, dry and intact. In most cases, we apply skin glue, tiesha or sutures to the incision at the time of surgery. This will be like a crust or have the appearance of a scab and will fall off in time on its own. The stitches or tiesha need to be removed at 3 weeks post op appointment. You may begin to shower 3 days after surgery (this allows the glue to real well). However, please avoid scrubbing the incision site or peeling off any of the skin glue. This will ensure optimal healing of your incision. Also, during this time avoid soaking the incision area in water - this includes swimming pools, hot tubs or baths. No ointments, lotions or oils on the incision until your surgeon allows. Leave tiesha, sutures or glue in place. Neurological dysfunction that comes on suddenly can also be a sign of a stroke. Below some common symptoms of a stroke are listed: B - balance difficulty such as sudden onset walking or leaning to one side - NEW E - eye problem such as sudden double vision or trouble seeing on one side - NEW F - Facial weakness or numbness on one side - NEW A - Arm or leg weakness or numbness on one side - NEW S - Slurred speech or difficulty with word finding - NEW T - Time is BRAIN! Call 911 as soon as you recognize these symptoms Diet: Consume a regular diet rich in vegetables and lean protein such as chicken or fish. You should consume in a ratio of approximately 20% fats|40% carbohydrates|40%protein. Vegetables, sweet potatoes, brown rice or quinoa are examples of good carbohydrates. Chips, white bread, cookies and sweets/sugar are examples of bad carbohydrates. Limit your bad carbs, go wild with good carbs. "Life's Simple 7" Guidelines as per [place] [employer] These will help you reclaim your life after surgery and busher helper in your recovery, keeping in mind your restrictions. (1) Get Active. Physical activity can help people lose weight, control high blood pressure and cholesterol, feel emotionally better, and sleep better. (2) Control Cholesterol. Avoid a diet high in saturated fat, trans fat, & cholesterol. Limit whole milk & cream, ice cream, butter, egg yolks, processed meats (like sausage and hot dogs), and fatty meats. Choose healthy foods that are low in saturated fat, trans fat and cholesterol which include: Fruits and vegetables, fiber rich grain products (like whole grain pasta and brown rice), lean meat such as chicken, fish, nuts, seeds, and legumes. (3) Eat Better. Eat small portions. Shop at the grocery with a list and do not stray from it. Tips for a healthy diet include: Limit sodium intake to less than 1500mg daily, avoid prepackaged, processed, and fast foods, choose a diet rich in fruits, vegetables, and whole grain, high fiber foods, and limit saturated & cholesterol in your diet. (4) Manage Blood Pressure. If you have high blood pressure, you should have a cuff at home so that you can check your blood pressure regularly. Be sure you have a good cuff. An arm one is generally better than a wrist one. Bring the cuff to a doctor's appointment to validate that the measurements that your cuff are taking are accurate. Take your blood pressure twice daily when you are sitting down and relaxing. Record the numbers in a log and bring this log with you to your doctors' appointments. (5) Lose Weight if your BMI is above 25. A healthy BMI is between 19-25. To calculate Your BMI, you may use a Standard BMI Calculator on the NIH BMI website: <www.nhlbi.nih.gov/guidelines/obesity/BMI/bmicalc.htm>. Weigh oneself daily. If you are overweight, set a goal to lose weight. A pound a week loss if needed is a good target. (6) Reduce Blood Sugar. Limit foods and liquids with "added sugars." (Added sugars include sucrose, fructose, glucose, maltose, dextrose, high fructose corn syrup, corn syrup, concentrated fruit juice and honey). (7) Stop Smoking. If you smoke, quitting smoking is one of the best things that you can do for your health. Smoking increases your risk of heart attack, stroke, and peripheral vascular disease, which is a build-up of plaque in your arteries. Please discard all the cigarettes and lighters in your house. Have a plan for what you will do when you have the urge to smoke. Direct and second- hand smoke shortens your life as well as the lives of your family, friends and others around you. For your health and the health of those around you, please consider quitting! Proper Bending Body Mechanics: Maintain a wide stance with one foot slightly in front of the other. Keep your back straight. Bend utilizing the strength in your hips and knees. Do not bend at the waist. Maintain the lifted object at your waist-level close to your body. Avoid lifting weight that causes immediately pain or pain anywhere in the body afterwards. Smoking/Nicotine If there was ever one thing that you could do to increase your overall health, decrease your risk of cardiovascular problems by about 39% the second you make the choice, it is to STOP SMOKING. Your body's most instant gratification is the second you stop smoking. We have all heard the studies, read the articles but it is true, smoking is extremely bad for your overall health, and moreover it is detrimental to your bone health. Nicotine, IN ANY FORM, kills bone cells, prevents your body from healing fractures, and significantly prolongs healing after surgery. In spine surgery specifically, it increases your risk of not healing your bones to create a fusion and increases your risk of having a revision surgery due to this up to 60%. I know it is hard. I know it feels impossible. But there are ways. Take control of your life. We are here to help you through it. And when you are ready, ask us and we can direct you to help if you desire. Use the START Plan to Quit Smoking (please visit the [employer].org website listed below for more information): S = Set a quit date. Choose a date within the next 2 weeks, so you have enough time to prepare without losing your motivation to quit. If you mainly smoke at work, quit on the weekend, so you have a few days to adjust to the change. T = Tell family, friends, and co-workers that you plan to quit. Let your friends and family in on your plan to quit smoking and tell them you need their support and encouragement to stop. Look for a quit harish who wants to stop smoking as well. You can help each other get through the rough times. A = Anticipate and plan for the challenges you'll face while quitting. Most people who begin smoking again do so within the first 3 months. You can help yourself make it through by preparing ahead for common challenges, such as nicotine withdrawal and cigarette cravings. R = Remove cigarettes and other tobacco products from your home, car, and work. Throw away all your cigarettes (no emergency pack!), lighters, ashtrays, and matches. Wash your clothes and freshen up anything that smells like smoke. Shampoo your car, clean your drapes and carpet, and steam your furniture. T = Talk to your doctor about getting help to quit. Your doctor can prescribe medication to help with withdrawal and suggest other alternatives. If you can't see a doctor, you can get many products over the counter at your local pharmacy or grocery store, including the nicotine patch, nicotine lozenges, and nicotine gum. Resources for Quitting Smoking: <https://www.[place].gov/documents/[facility]/Quit_Tobacco_Resources_for_patients_313 480_7.pdf> Supplementation: Take recommended dosages of Vitamin D and Calcium to help fortify your bones and help them to heal. See your health maintenance packet for dosages and recommended levels. DVT/VTE prophylaxis: You will be given compression stockings from the hospital. Wear these daily for the first two weeks after surgery. You may take them off at night. You may be prescribed a medication to help thin your blood. Take this as directed. If you are not prescribed this medication, early and frequent ambulation has been shown to be the best prophylaxis to deep vein thrombosis and sequelae related to this event. Discharge Disposition: HOME WITH HOME HEALTH SERVICES
[2022-04-26 11:12] VITALS: BP 106/73; PULSE 92; TEMP 98.3
--- NOTE | 2022-04-26 14:59 | P.PN ---
Subjective Progress Note Date: 04/26/22 - Reason for Consult Consult date: 04/25/22 Medical management postop L5-S1 TLIF - History of Present Illness This is a 31-year-old female who was recently admitted under orthopedic services Dr. Boggs for L5 to S1 spondylolysis with listhesis with right lower extremity paresthesias and weakness and continued ongoing back pain. Patient reports she follows with Dr. Henriquez in the outpatient setting with a past medical history of ADD/ADHD, hypothyroid, GERD. Patient reports she is a former smoker and continues to use marijuana and occasionally drinks and denies any other illicit drug use. Patient has been having back pain and been seeing orthopedics outpatient opted for surgical intervention as pain was not improving. Patient is postop TLIF fusion of L5-S1 postop day #1. Patient is afebrile denies chest pain or shortness of breath. WBC this morning mildly elevated at 10.78 most likely reactive hemoglobin and platelets are stable. Sodium slightly low of 131 although BMP is normal. Encouraged oral intake and pain management per primary service. On exam patient was reporting some acid reflux and have ordered Pepcid twice a day. Current increase activity as tolerated with restrictions per orthopedics. We will continue to follow with orthopedics during this hospitalization. 04/26/2022 Patient is seen and evaluated in follow-up today no acute overnight issues noted. Patient reports she continues to have some back pain although less intense than yesterday. Patient denies any further acid reflux and reports to tolerating diet. Patient has been up and walking and voiding with no difficulties. Patient does have an incentive spirometer and encourage the patient to continue using at least 10 times every hour while awake. Patient reports she is being discharged by orthopedics today. Recommend outpatient follow-up with her primary care provider in keeping her follow-up appointment with orthopedics. Review of systems: Constitutional: No reports of fatigue, fever, or chills Cardiovascular: No reports of chest pain or palpitations Respiratory: No reports of shortness of breath or cough GI: No reports of nausea, vomiting, or diarrhea : No reports of dysuria or retention Neurovascular: No reports of weakness or numbness, reports some lower back discomfort All medications have been reviewed PHYSICAL EXAMINATION: GENERAL: The patient is alert and oriented x4, Well developed, well nourished. HEENT: Pupils are round and equally reacting to light. EOMI. no scleral icterus. No conjunctival pallor. Normocephalic, atraumatic. No pharyngeal erythema. No thyromegaly. CARDIOVASCULAR: S1 and S2 muffled PULMONARY: diminished breath sounds bilaterally with no wheezing or rhonchi noted. ABDOMEN: soft. Nontender on exam. obese. non-distended, normoactive bowel sounds. No palpable organomegaly. MUSCULOSKELETAL: No joint swelling or deformity. EXTREMITIES: No cyanosis, clubbing, or pedal edema. NEUROLOGICAL: Gross neurological examination did not reveal any focal deficits. Diffuse weakness SKIN: No rashes. Assessment: Lower back pain status post L5 to S1 TLIF fusion Gastroesophageal reflux disease Mild leukocytosis, most likely reactive secondary to surgery no fever or signs of infection noted History of ADD/ADHD THC use Obesity with a body mass index of 31.0 Former smoker GI prophylaxis DVT prophylaxis Full code Plan: Recommend to continue with current medications and management per orthopedic services. Patient reports she is being discharged by orthopedics today. Encourage the patient follow-up with primary care provider along with scheduled appointment for or so and continue taking medications as prescribed. Encouraged patient to continue using incentive spirometer at least 10 times every hour while awake. Encouraged increase activity as tolerated per orthopedic restriction recommendations. Pain management per orthopedics as patient reports her pain is slightly improved from yesterday. Patient reports the passing gas and voiding with no difficulties. We will continue to follow with orthopedics during hospitalization. Thank you kindly for this consultation. Plan is for discharge today. The impression and plan of care has been dictated by Marcia Parish, nurse practitioner as directed. Dr.Vegesna JONES I have performed a history and examination and MDM of this patient, discussed the same with the dictator, and agree with the dictator's assessment and plan as written ,documented as a scribe. Based on total visit time, I have performed more than 50% of the visit. Any additional findings or plans will be noted. Objective - Vital Signs Vital signs: Vital Signs Temp 98.3 F 04/26/22 08:55 Pulse 92 04/26/22 08:55 Resp 16 04/26/22 08:55 BP 106/73 04/26/22 08:55 Pulse Ox 95 04/26/22 08:55 FiO2 Intake & Output 04/25/22 04/26/22 04/26/22 18:59 06:59 18:59 Intake Total 840 500 Balance 840 500 Intake: Oral 840 500 Other: # Voids 3 1 2 - Labs CBC & Chem 7: 04/25/22 04:40 04/25/22 04:40
== END 2022-04-26 12:59 | disposition home health service (06) ==
LOC: OR 08:30 → 4SSUR 12:48 → OR 04-26 07:15 → 4SSUR 04-26 07:15
PROVIDERS: ADMIT Orthopaedic Surgery; ATTEND Orthopaedic Surgery
DX: M51.17 Intervertebral disc disorders with radiculopathy, lumbosacral region (principal); E03.9 Hypothyroidism, unspecified; F90.9 Attention-deficit hyperactivity disorder, unspecified type; K21.9 Gastro-esophageal reflux disease without esophagitis; D72.829 Elevated white blood cell count, unspecified; F12.90 Cannabis use, unspecified, uncomplicated; F31.9 Bipolar disorder, unspecified; E66.9 Obesity, unspecified; Z68.31 Body mass index [BMI] 31.0-31.9, adult; Z87.891 Personal history of nicotine dependence; Z79.890 Hormone replacement therapy
CPT/HCPCS: 97116; 97161; 81025; 86900; 86901; 80048; 85025; 86850; 72100; 72131; 22633; 22853; 20931; 20936; 22840; G0378; C1713; C1762; J2250; J0330; J1100; J2710; J0690 ×3; J2405; J3010; J1644; J2370; J2704; J1170; J2001

== ENCOUNTER 2022-04-28 22:14 | Emergency (ER) | payer BC ==
--- NOTE | 2022-04-28 22:43 | ED ---
General Adult HPI - General Chief complaint: Abdominal Pain Stated complaint: Constipation Time Seen by Provider: 04/28/22 22:28 Source: patient, RN notes reviewed Mode of arrival: ambulatory Limitations: no limitations - History of Present Illness Initial comments: 31-year-old female presents to the emergency Department with complaints of constipation, onset today. Patient states she had recent back surgery and has been on narcotic pain medicine. States she took a stool softener today. Reports straining to have bowel movement throughout the day and now has rectal pressure. Reports generalized abdominal cramping discomfort. Denies fever, chills, headache, dizziness, chest pain, shortness of breath, diarrhea, and dysuria. - Related Data Home Medications Medication Instructions Recorded Confirmed Levothyroxine Sodium [Synthroid] 100 mcg PO DAILY 04/16/22 04/24/22 Previous Rx's Medication Instructions Recorded Cyclobenzaprine [Flexeril] 5 mg PO TID #90 tablet 04/26/22 Gabapentin [Neurontin] 300 mg PO BID #60 cap 04/26/22 HYDROcodone/APAP 7.5-325MG [[place] 1 tab PO Q4-6H PRN #56 tab 04/26/22 7.5] Sennosides/Docusate Sodium [Senna 1 each PO DAILY PRN #20 tablet 04/26/22 Plus 8.6-50 mg Tablet] cefaDROXiL [Duricef] 500 mg PO Q12HR 3 Days #6 cap 04/26/22 Allergies Allergy/AdvReac Type Severity Reaction Status Date / Time No Known Allergies Allergy Verified 04/28/22 22:22 Review of Systems ROS Statement: Those systems with pertinent positive or pertinent negative responses have been documented in the HPI. ROS Other: All systems not noted in ROS Statement are negative. Past Medical History Past Medical History: No Reported History Additional Past Medical History / Comment(s): BACK PAIN History of Any Multi-Drug Resistant Organisms: None Reported Past Surgical History: Appendectomy Past Anesthesia/Blood Transfusion Reactions: No Reported Reaction Past Psychological History: ADD/ADHD, Bipolar Smoking Status: Former smoker Past Alcohol Use History: Occasional Past Drug Use History: Marijuana - Past Family History Mother Family Medical History: Diabetes Mellitus General Exam Limitations: no limitations General appearance: alert, in no apparent distress Respiratory exam: Present: normal lung sounds bilaterally. Absent: respiratory distress, wheezes, rales, rhonchi, stridor Cardiovascular Exam: Present: normal rhythm, tachycardia, normal heart sounds. Absent: systolic murmur, diastolic murmur, rubs, gallop, clicks GI/Abdominal exam: Present: soft, normal bowel sounds. Absent: distended, tenderness, guarding, rebound, rigid Rectal exam: Present: normal rectal tone, other (moderate amount of hard formed brown stool in rectum; no hemorrhoids or obvious blood upon rectal exam) Back exam: Present: other (incision sites c/d/i- no erythema or drainage) Neurological exam: Present: alert, oriented X3 Psychiatric exam: Present: flat affect Course Vital Signs 04/28/22 04/29/22 22:20 00:35 Temperature 98.1 F 98.0 F Pulse Rate 147 H 107 H Respiratory 20 14 Rate Blood Pressure 110/78 122/81 O2 Sat by Pulse 100 98 Oximetry - Reevaluation(s) Reevaluation #1: 04/28/22 23:50 Patient had good output with enema. Reports feeling significantly improved. She will be discharged home with instructions to increase use of stool softener while taking narcotic pain medication. Heart rate remains somewhat elevated (100-110) upon discharge. In reviewing patient's history, she tends to have an elevated heart rate. This was discussed with patient. She denies any chest pain, palpitations, or shortness of breath. Is moderately uncomfortable, but is feeling improved. Will follow with PCP and surgeon as scheduled this week. Medical Decision Making - Medical Decision Making This is a 22-year-old female with history of recent back surgery who is in taking narcotic pain medication. She arrives with constipation; hard stool in rectum. Given an enema with significant output. Reports improvement. Verbalizes reading for discharge. Advised to take stool softener while taking pain medicine. Does have elevated heart rate which we discussed. She is to follow up with her PCP this week. Return parameters discussed in detail. Patient verbalizes understanding and agreement. Attending: Haile. Disposition Clinical Impression: Constipation Disposition: HOME SELF-CARE Condition: Stable Instructions (If sedation given, give patient instructions): Constipation (ED) Additional Instructions: Take stool softener twice daily for the next 3 days. Increase your intake of water while taking pain medication. Eat high-fiber diet. Follow-up as scheduled. Return to the emergency department with any new, worsening, or concerning symptoms. Is patient prescribed a controlled substance at d/c from ED?: No Referrals: Norris Henriquez MD [Primary Care Provider] - 1-2 days Time of Disposition: 23:58
[2022-04-29 00:42] VITALS: BP 122/81; PULSE 107; RESP 14; TEMP 98
== END 2022-04-29 00:35 | disposition home or self-care (01) ==
LOC: EC 22:14
DX: K59.00 Constipation, unspecified (principal); F41.9 Anxiety disorder, unspecified; Z87.891 Personal history of nicotine dependence; F12.90 Cannabis use, unspecified, uncomplicated
CPT/HCPCS: 99283

== ENCOUNTER 2022-12-02 14:48 | Emergency (ER) | payer BC ==
--- NOTE | 2022-12-02 15:14 | ED ---
Skin/Abscess/FB HPI - General Chief complaint: Skin/Abscess/Foreign Body Stated complaint: Abd pain Time Seen by Provider: 12/02/22 14:54 Source: patient Mode of arrival: ambulatory Limitations: no limitations - History of Present Illness Initial comments: 31-year-old female presents to the emergency department chief complaint of lump under her left breast. She states that she first noticed it this morning and it has progressively gotten bigger throughout the day. She takes [place] for her back for which she had surgery in April. Patient reports no other medications or allergies. She states that she had a yeast infection under her breasts back in March and was being treated with cream but she ran out. She did not have any improvement in the rash with treatment. Denies fever, chills. Admits to frequent urination. She states that she is supposed to take synthroid but has not been able to afford it. - Related Data Home Medications Medication Instructions Recorded Confirmed Levothyroxine Sodium [Synthroid] 100 mcg PO DAILY 04/16/22 04/24/22 Previous Rx's Medication Instructions Recorded Cyclobenzaprine [Flexeril] 5 mg PO TID #90 tablet 04/26/22 Gabapentin [Neurontin] 300 mg PO BID #60 cap 04/26/22 HYDROcodone/APAP 7.5-325MG [[place] 1 tab PO Q4-6H PRN #56 tab 04/26/22 7.5] Sennosides/Docusate Sodium [Senna 1 each PO DAILY PRN #20 tablet 04/26/22 Plus 8.6-50 mg Tablet] cefaDROXiL [Duricef] 500 mg PO Q12HR 3 Days #6 cap 04/26/22 Cephalexin [Keflex] 500 mg PO Q6HR #28 cap 12/02/22 Nystatin 100,000 Unit/gm Powd 1 applic TOPICAL BID #15 gram 12/02/22 [Mycostatin Powder] Sulfamethox-Tmp 800-160Mg [Bactrim 1 each PO Q12HR #14 tab 12/02/22 Ds] metFORMIN HCL 500 mg PO DAILY #7 tablet 12/02/22 Allergies Allergy/AdvReac Type Severity Reaction Status Date / Time No Known Allergies Allergy Verified 12/02/22 14:53 Review of Systems ROS Statement: Those systems with pertinent positive or pertinent negative responses have been documented in the HPI. ROS Other: All systems not noted in ROS Statement are negative. Past Medical History Past Medical History: No Reported History Additional Past Medical History / Comment(s): BACK PAIN History of Any Multi-Drug Resistant Organisms: None Reported Past Surgical History: Appendectomy Past Anesthesia/Blood Transfusion Reactions: No Reported Reaction Past Psychological History: ADD/ADHD, Bipolar Smoking Status: Former smoker Past Alcohol Use History: Occasional Past Drug Use History: Marijuana - Past Family History Mother Family Medical History: Diabetes Mellitus General Exam Limitations: no limitations General appearance: alert, in no apparent distress Head exam: Present: atraumatic, normocephalic, normal inspection Eye exam: Present: normal appearance, PERRL, EOMI. Absent: scleral icterus, conjunctival injection, periorbital swelling ENT exam: Present: mucous membranes dry Neck exam: Present: normal inspection. Absent: tenderness, meningismus, lymphadenopathy Respiratory exam: Present: normal lung sounds bilaterally. Absent: respiratory distress, wheezes, rales, rhonchi, stridor Cardiovascular Exam: Present: regular rate, normal rhythm, normal heart sounds. Absent: systolic murmur, diastolic murmur, rubs, gallop, clicks GI/Abdominal exam: Present: soft, normal bowel sounds. Absent: distended, tenderness, guarding, rebound, rigid Extremities exam: Present: normal inspection, full ROM, normal capillary refill. Absent: tenderness, pedal edema, joint swelling, calf tenderness Back exam: Present: normal inspection Neurological exam: Present: alert, oriented X3 Psychiatric exam: Present: normal affect, normal mood Skin exam: Present: warm, dry, rash (intertrigo bilateral breasts) Course Vital Signs 12/02/22 14:51 Temperature 98.2 F Pulse Rate 99 Respiratory 20 Rate Blood Pressure 120/76 O2 Sat by Pulse 99 Oximetry Medical Decision Making - Medical Decision Making Was pt. sent in by a medical professional or institution (, PA, [employer], urgent care, hospital, or jail...) When possible be specific @ -No Did you speak to anyone other than the patient for history (EMS, parent, family, police, friend...)? What history was obtained from this source @ -No Did you review nursing and triage notes (agree or disagree)? Why? @ -I reviewed and agree with nursing and triage notes Were old charts reviewed (outside hosp., previous admission, EMS record, old EKG, old radiological studies, urgent care reports/EKG's, jail records)? Report findings @ -No old charts were reviewed Differential Diagnosis (chest pain, altered mental status, abdominal pain women, abdominal pain men, vaginal bleeding, weakness, fever, dyspnea, syncope, headache, dizziness, GI bleed, back pain, seizure, CVA, palpatations, mental health, musculoskeletal)? @ -not applicable EKG interpreted by me (3pts min.). @ -none X-rays interpreted by me (1pt min.). @ -None done CT interpreted by me (1pt min.). @ -None done U/S interpreted by me (1pt. min.). @ -None done What testing was considered but not performed or refused? (CT, X-rays, U/S, labs)? Why? @ -None What meds were considered but not given or refused? Why? @ -None Did you discuss the management of the patient with other professionals (professionals i.e. , PA, [employer], lab, RT, psych nurse, social worker clinical, plastic worker, teacher, strategic intelligence officer, heel caser)? Give summary @ -No Was smoking cessation discussed for >3mins.? @ -No Was critical care preformed (if so, how long)? @ -No Were there social determinants of health that impacted care today? How? (Homelessness, low income, unemployed, alcoholism, drug addiction, transportation, low edu. Level, literacy, decrease access to med. care, longterm, rehab)? @ -No Was there de-escalation of care discussed even if they declined (Discuss DNR or withdrawal of care, Hospice)? DNR status @ -No What co-morbidities impacted this encounter? (DM, HTN, Smoking, COPD, CAD, Cancer, CVA, ARF, Chemo, Hep., AIDS, mental health diagnosis, sleep apnea, morbid obesity)? @ -None Was patient admitted / discharged? Hospital course, mention meds given and route, prescriptions, significant lab abnormalities, going to OR and other pe rtinent info. @ -discharged. patient presented to the emergency department for chief complaint of lump under left breast 1 day. She reports a rash beneath both of her breasts that has been there since March she was being treated for fungal infection with nystatin but reports no resolution. Upon review of patient's prior charts patient had elevated blood sugar back in April which she was unaware of. Random glucose was 477. CBC showed WBC 7.7, hemoglobin 16.9; CMP showed sodium 135, potassium 4.6, normal CO2 and anion gap, blood glucose 427. UA showed 4+ glucose, 3+ ketones. She is given 1 L normal saline and 6 units of IV regular insulin. Patient's blood sugar 286 on reevaluation. Prescription sent to patient's pharmacy for antibiotics for abscess and nystatin. 7 day prescription sent to patient's pharmacy for metformin 500 mg and patient advised to follow-up with her primary care provider for further management of hyperglycemia. Patient is understanding and agreeable with the plan. Patient stable at time of discharge. Case discussed with my attending, Dr. Huffman Undiagnosed new problem with uncertain prognosis? @ -No Drug Therapy requiring intensive monitoring for toxicity (Heparin, Nitro, Insulin, Cardizem)? @ -No Were any procedures done? @ -No Diagnosis/symptom? @ -Intertrigo Acute, or Chronic, or Acute on Chronic? @ -Acute Uncomplicated (without systemic symptoms) or Complicated (systemic symptoms)? @ -Uncomplicated Side effects of treatment? @ -No Exacerbation, Progression, or Severe Exacerbation? @ -No Poses a threat to life or bodily function? How? (Chest pain, [place], [place], pneumonia, PE, COPD, DKA, ARF, appy, cholecystitis, CVA, Diverticulitis, Homicidal, Suicidal, threat to staff... and all critical care pts) @ -No Diagnosis/symptom? @ -Abscess Acute, or Chronic, or Acute on Chronic? @ -Acute Uncomplicated (without systemic symptoms) or Complicated (systemic symptoms)? @ -Uncomplicated Side effects of treatment? @ -none Exacerbation, Progression, or Severe Exacerbation] @ -no Poses a threat to life or bodily function? @ -no Diagnosis/symptom? @ -Hyperglycemia Acute, or Chronic, or Acute on Chronic? @ -Acute Uncomplicated (without systemic symptoms) or Complicated (systemic symptoms)? @ -Uncomplicated Side effects of treatment? @ -none Exacerbation, Progression, or Severe Exacerbation] @ -no Poses a threat to life or bodily function? @ -no - Lab Data Result diagrams: 12/02/22 17:01 12/02/22 17:01 Lab Results 12/02/22 12/02/22 12/02/22 Range/Units 16:08 17:01 17:01 WBC 7.7 (3.8-10.6) k/uL RBC 5.20 (3.80-5.40) m/uL Hgb 16.9 H (11.4-16.0) gm/dL Hct 48.4 H (34.0-46.0) % MCV 93.1 (80.0-100.0) fL MCH 32.5 (25.0-35.0) pg MCHC 34.9 (31.0-37.0) g/dL RDW 12.8 (11.5-15.5) % Plt Count 296 (150-450) k/uL MPV 8.1 Neutrophils % 77 % Lymphocytes % 17 % Monocytes % 3 % Eosinophils % 2 % Basophils % 0 % Neutrophils # 6.0 (1.3-7.7) k/uL Lymphocytes # 1.3 (1.0-4.8) k/uL Monocytes # 0.3 (0-1.0) k/uL Eosinophils # 0.1 (0-0.7) k/uL Basophils # 0.0 (0-0.2) k/uL Sodium 135 L (137-145) mmol/L Potassium 4.6 (3.5-5.1) mmol/L Chloride 97 L (98-107) mmol/L Carbon Dioxide 26 (22-30) mmol/L Anion Gap 12 mmol/L BUN 12 (7-17) mg/dL Creatinine 0.47 L (0.52-1.04) mg/dL Est GFR (CKD-EPI)AfAm >90 (>60 ml/min/1.73 sqM) Est GFR (CKD-EPI)NonAf >90 (>60 ml/min/1.73 sqM) Glucose 427 H (74-99) mg/dL POC Glucose (mg/dL) 477 H (70-110) mg/dL POC Glu Rivet Driver ID Sravanthi Adkins Calcium 9.7 (8.4-10.2) mg/dL Total Bilirubin 0.7 (0.2-1.3) mg/dL AST 21 (14-36) U/L ALT 26 (4-34) U/L Alkaline Phosphatase 93 (38-126) U/L Total Protein 7.4 (6.3-8.2) g/dL Albumin 4.6 (3.5-5.0) g/dL Urine Color Urine Appearance (Clear) Urine pH (5.0-8.0) Ur Specific [place] (1.001-1.035) Urine Protein (Negative) Urine Glucose (UA) (Negative) Urine Ketones (Negative) Urine Blood (Negative) Urine Nitrite (Negative) Urine Bilirubin (Negative) Urine Urobilinogen (<2.0) mg/dL Ur Leukocyte Esterase (Negative) Urine RBC (0-5) /hpf Urine WBC (0-5) /hpf Ur Squamous Epith Cells (0-4) /hpf Urine Mucus (None) /hpf 12/02/22 12/02/22 Range/Units 17:01 18:27 WBC (3.8-10.6) k/uL RBC (3.80-5.40) m/uL Hgb (11.4-16.0) gm/dL Hct (34.0-46.0) % MCV (80.0-100.0) fL MCH (25.0-35.0) pg MCHC (31.0-37.0) g/dL RDW (11.5-15.5) % Plt Count (150-450) k/uL MPV Neutrophils % % Lymphocytes % % Monocytes % % Eosinophils % % Basophils % % Neutrophils # (1.3-7.7) k/uL Lymphocytes # (1.0-4.8) k/uL Monocytes # (0-1.0) k/uL Eosinophils # (0-0.7) k/uL Basophils # (0-0.2) k/uL Sodium (137-145) mmol/L Potassium (3.5-5.1) mmol/L Chloride (98-107) mmol/L Carbon Dioxide (22-30) mmol/L Anion Gap mmol/L BUN (7-17) mg/dL Creatinine (0.52-1.04) mg/dL Est GFR (CKD-EPI)AfAm (>60 ml/min/1.73 sqM) Est GFR (CKD-EPI)NonAf (>60 ml/min/1.73 sqM) Glucose (74-99) mg/dL POC Glucose (mg/dL) 286 H (70-110) mg/dL POC Glu Rivet Driver ID Adkins, Sravanthi Calcium (8.4-10.2) mg/dL Total Bilirubin (0.2-1.3) mg/dL AST (14-36) U/L ALT (4-34) U/L Alkaline Phosphatase (38-126) U/L Total Protein (6.3-8.2) g/dL Albumin (3.5-5.0) g/dL Urine Color Colorless Urine Appearance Clear (Clear) Urine pH 5.0 (5.0-8.0) Ur Specific [place] 1.039 H (1.001-1.035) Urine Protein Negative (Negative) Urine Glucose (UA) 4+ H (Negative) Urine Ketones 3+ H (Negative) Urine Blood Negative (Negative) Urine Nitrite Negative (Negative) Urine Bilirubin Negative (Negative) Urine Urobilinogen <2.0 (<2.0) mg/dL Ur Leukocyte Esterase Small H (Negative) Urine RBC 6 H (0-5) /hpf Urine WBC 3 (0-5) /hpf Ur Squamous Epith Cells 2 (0-4) /hpf Urine Mucus Rare H (None) /hpf Disposition Clinical Impression: Intertrigo, Abscess, Hyperglycemia Disposition: HOME SELF-CARE Condition: Stable Instructions (If sedation given, give patient instructions): Abscess (ED) Additional Instructions: Please follow up with Dr. Henriquez this week. Take medications as prescribed. Return to the emergency department for new or worsening symptoms. Prescriptions: Sulfamethox-Tmp 800-160Mg [Bactrim Ds] 1 each PO Q12HR #14 tab Cephalexin [Keflex] 500 mg PO Q6HR #28 cap metFORMIN HCL 500 mg PO DAILY #7 tablet Nystatin 100,000 Unit/gm Powd [Mycostatin Powder] 1 applic TOPICAL BID #15 gram Is patient prescribed a controlled substance at d/c from ED?: No Referrals: Norris Henriquez MD [Primary Care Provider] - 1-2 days
[2022-12-02 16:12] LABS: Glucose,Whole Blood 477 mg/dL (70-110)
[2022-12-02] MEDS ORDERED: SODIUM CHLORIDE 0.9% 1,000 ML IV ONE (16:15)
[2022-12-02] MEDS ORDERED: INSULIN REGULAR 100 UNIT/ML VIAL (IV) IV ONE (16:17)
[2022-12-02 17:21] LABS: WBC 7.7 k/uL (3.8-10.6)
[2022-12-02 17:22] LABS: Basophils % (A) 0 %; Eosinophils # (A) 0.1 k/uL (0-0.7); Eosinophils % (A) 2 %; HCT 48.4 % (34.0-46.0); HGB 16.9 gm/dL (11.4-16.0); Lymphocytes # (A) 1.3 k/uL (1.0-4.8); Lymphocytes % (A) 17 %; MCH 32.5 pg (25.0-35.0); MCHC 34.9 g/dL (31.0-37.0); MCV 93.1 fL (80.0-100.0); Mean Platelet Volume 8.1; Monocytes # (A) 0.3 k/uL (0-1.0); Monocytes % (A) 3 %; Neutrophils % (A) 77 %; Platelet Count 296 k/uL (150-450); RDW 12.8 % (11.5-15.5)
[2022-12-02 17:35] LABS: ALT 26 U/L (4-34); AST 21 U/L (14-36); African American GFR (CKD) >90 (>60 ml/min/1.73 sqM); Albumin 4.6 g/dL (3.5-5.0); Alkaline Phosphatase 93 U/L (38-126); Anion Gap 12 mmol/L; Blood Urea Nitrogen 12 mg/dL (7-17); Calcium 9.7 mg/dL (8.4-10.2); Carbon Dioxide 26 mmol/L (22-30); Chloride 97 mmol/L (98-107); Glucose 427 mg/dL (74-99); Non-African American GFR(CKD) >90 (>60 ml/min/1.73 sqM); Potassium 4.6 mmol/L (3.5-5.1); Sodium 135 mmol/L (137-145); Total Bilirubin 0.7 mg/dL (0.2-1.3); Total Protein 7.4 g/dL (6.3-8.2)
[2022-12-02 17:52] LABS: Appearance,Urine Clear (Clear); Bilirubin,Urine Negative (Negative); Blood,Urine Negative (Negative); Color,Urine Colorless; Glucose,Urine (UA) 4+ (Negative); Leukocyte Esterase,Urine Small (Negative); Mucus,Urine Rare /hpf; Nitrite,Urine Negative (Negative); Protein,Urine Negative (Negative); RBC,Urine 6 /hpf (0-5); Specific Gravity,Urine 1.039 (1.001-1.035); Squamous Epithelial Cell,Urine 2 /hpf (0-4); Urobilinogen,Urine <2.0 mg/dL (<2.0); WBC,Urine 3 /hpf (0-5)
[2022-12-02 18:01] LABS: Ketones,Urine 3+ (Negative)
[2022-12-02 18:28] LABS: Glucose,Whole Blood 286 mg/dL (70-110)
[2022-12-02] MEDS ORDERED: SULFAMETHOX-TMP 800-160MG 1 EACH TAB PO STA (18:29)
[2022-12-02] MEDS ORDERED: CEPHALEXIN 500 MG CAP PO STA (18:29)
[2022-12-02 18:34] VITALS: BP 120/76; PULSE 99; RESP 20; TEMP 98.2
== END 2022-12-02 18:47 | disposition home or self-care (01) ==
LOC: EC 14:48
DX: L30.4 Erythema intertrigo (principal); N61.1 Abscess of the breast and nipple; R73.9 Hyperglycemia, unspecified; B95.61 Methicillin susceptible Staphylococcus aureus infection as the cause of diseases classified elsewhere; F12.90 Cannabis use, unspecified, uncomplicated; Z86.59 Personal history of other mental and behavioral disorders; Z87.891 Personal history of nicotine dependence
CPT/HCPCS: 36415; 80053; 81001; 85025; 87070; 87077; 87186; 87205; 99284

== ENCOUNTER 2022-12-07 23:31 | Emergency (ER) | payer BC ==
[2022-12-07 23:37] LABS: Glucose,Whole Blood 476 mg/dL (70-110)
[2022-12-07 23:39] VITALS: TEMP 98.3
--- NOTE | 2022-12-07 23:59 | ED ---
Recheck HPI - General Chief Complaint: Recheck/Abnormal Lab/Rx Stated Complaint: Blood Sugar Time Seen by Provider: 12/07/22 23:44 Source: patient, family, RN notes reviewed Mode of arrival: ambulatory Limitations: no limitations - History of Present Illness Initial Comments: This is a 31-year-old female who presents to the emergency department for eleva beck blood sugar. Patient was evaluated here 5 days ago for an abscess under her breast. She was found to have elevated blood sugar at that time. She was given a prescription for metformin and followed up with Dr. Henriquez. She had repeat blood work done today demonstrating the elevated blood sugar. States that she tried to call back her PCP asking for instruction, however it was too late and the office was closed. This prompted her to come to the emergency department. She's never been diagnosed with diabetes or been told that she had elevated blood sugar prior to her visit 5 days ago. Her maternal grandparents both had type 1 diabetes and her mother has type 2 diabetes. She does report increased thirst, urination, and hunger. Denies any fevers, chills, sore throat, cough, dyspnea, chest pain, palpitations, abdominal pain, nausea, vomiting, diarrhea, back pain, or headac hes. MD Complaint: abnormal lab - Related Data Home Medications Medication Instructions Recorded Confirmed Levothyroxine Sodium [Synthroid] 100 mcg PO DAILY 04/16/22 04/24/22 Previous Rx's Medication Instructions Recorded Cyclobenzaprine [Flexeril] 5 mg PO TID #90 tablet 04/26/22 Gabapentin [Neurontin] 300 mg PO BID #60 cap 04/26/22 HYDROcodone/APAP 7.5-325MG [[place] 1 tab PO Q4-6H PRN #56 tab 04/26/22 7.5] Sennosides/Docusate Sodium [Senna 1 each PO DAILY PRN #20 tablet 04/26/22 Plus 8.6-50 mg Tablet] cefaDROXiL [Duricef] 500 mg PO Q12HR 3 Days #6 cap 04/26/22 Cephalexin [Keflex] 500 mg PO Q6HR #28 cap 12/02/22 Nystatin 100,000 Unit/gm Powd 1 applic TOPICAL BID #15 gram 12/02/22 [Mycostatin Powder] Sulfamethox-Tmp 800-160Mg [Bactrim 1 each PO Q12HR #14 tab 12/02/22 Ds] metFORMIN HCL 500 mg PO DAILY #7 tablet 12/02/22 metFORMIN HCL 500 mg PO BID 10 Days #20 tablet 12/08/22 Allergies Allergy/AdvReac Type Severity Reaction Status Date / Time No Known Allergies Allergy Verified 12/02/22 14:53 Review of Systems ROS Statement: Those systems with pertinent positive or pertinent negative responses have been documented in the HPI. ROS Other: All systems not noted in ROS Statement are negative. Past Medical History Past Medical History: No Reported History Additional Past Medical History / Comment(s): BACK PAIN History of Any Multi-Drug Resistant Organisms: None Reported Past Surgical History: Appendectomy Past Anesthesia/Blood Transfusion Reactions: No Reported Reaction Past Psychological History: ADD/ADHD, Bipolar Smoking Status: Former smoker Past Alcohol Use History: Occasional Past Drug Use History: Marijuana - Past Family History Mother Family Medical History: Diabetes Mellitus General Exam Limitations: no limitations General appearance: alert, in no apparent distress Head exam: Present: atraumatic, normocephalic, normal inspection Respiratory exam: Present: normal lung sounds bilaterally. Absent: respiratory distress, wheezes, rales, rhonchi, stridor Cardiovascular Exam: Present: regular rate, normal rhythm, normal heart sounds. Absent: systolic murmur, diastolic murmur, rubs, gallop, clicks Neurological exam: Present: alert, oriented X3, CN II-XII intact Psychiatric exam: Present: normal affect, normal mood Skin exam: Present: warm, dry, intact, normal color. Absent: rash Course Vital Signs 12/07/22 12/08/22 12/08/22 23:36 01:13 01:51 Temperature 98.3 F Pulse Rate 104 H 87 Respiratory 20 16 Rate Blood Pressure 116/74 97/61 111/69 O2 Sat by Pulse 99 98 Oximetry 12/08/22 02:44 Temperature Pulse Rate 76 Respiratory 16 Rate Blood Pressure 98/64 O2 Sat by Pulse 100 Oximetry Medical Decision Making - Medical Decision Making This is a 31-year-old female who presents to the emergency department for elevated blood sugar. Was pt. sent in by a medical professional or institution? @ -No Did you speak to anyone other than the patient for history? @ -No Did you review nursing and triage notes? @ -Yes, and I agree, it is accurate with regards to the patient's symptoms. Were old charts reviewed? @ -No Differential Diagnosis? @ -Differential Hyperglycemia: Diabetes mellitus, illness, excessive sugar consumption, medication, this is not meant to be an all-inclusive list. EKG interpreted by me (3pts min.)? @ -Not obtained X-rays interpreted by me (1pt min.)? @ -Not obtained CT interpreted by me (1pt min.)? @ -Not obtained U/S interpreted by me (1pt. min.)? @ -Not obtained What testing was considered but not performed? (CT, X-rays, U/S, labs)? Why? @ -None What meds were considered but not given? Why? @ -None Did you discuss the management of the patient with other professionals? @ -No Did you reconcile home meds? @ -No Was smoking cessation discussed for >3mins.? @ -No Was critical care preformed (if so, how long)? @ -No Were there social determinants of health that impacted care today? How? (Homelessness, low income, unemployed, alcoholism, drug addiction, transportation, low edu. Level, literacy, decrease access to med. care, long-term, rehab)? @ -No Was there de-escalation of care discussed even if they declined? (Discuss DNR or withdrawal of care, Hospice)? @ -No What co-morbidities impacted this encounter? (DM, HTN, Smoking, COPD, CAD, Cancer, CVA, Hep., AIDS, mental health diagnosis, sleep apnea, morbid obesity)? @ -None Was patient admitted / discharged? @ -Discharged. Lab work obtained revealing an elevated blood sugar of 458. Acetone negative. Patient appears to be a new onset diabetic without evidence of DKA. She was given a 2 L bolus of IV fluids. 8 units of IV insulin administered initially, and blood sugar dropped to 266. I did offer admission for new onset diabetes and medication management, however the patient declined. Additional 4 units of SQ insulin administered prior to discharge. Prescription for increase dose of metformin provided. Will increase from 500 mg daily to 500 mg twice daily. Advised to purchase an [id number] glucometer to keep track of her blood sugar at home. She is also instructed to have close follow- up with her primary care provider. Hemoglobin A1c was ordered with results pending at the time of discharge. Undiagnosed new problem with uncertain prognosis? @ -None Drug Therapy requiring intensive monitoring for toxicity (Heparin, Nitro, Insulin, Cardizem)? @ -None Were any procedures done? @ -None Diagnosis/symptom? @ -Hyperglycemia, new onset diabetes mellitus Acute, or Chronic, or Acute on Chronic? @ -Acute Uncomplicated (without systemic symptoms) or Complicated (systemic symptoms)? @ -Uncomplicated Side effects of treatment? @ -None Exacerbation, Progression, or Severe Exacerbation] @ -Not applicable Poses a threat to life or bodily function? @ -If the diabetes is not properly managed, it can become a life threatening issue. Return precautions reviewed in depth, the patient is instructed to return to the emergency department with any new, worsening, or concerning symptoms. Patient verbalized understanding. This case was discussed in detail with the attending ED physician, Dr. Be. Presentation, findings, and treatment plan discussed in detail as well. - Lab Data Result diagrams: 12/08/22 00:15 12/08/22 00:15 Lab Results 12/07/22 12/08/22 12/08/22 Range/Units 23:34 00:06 00:15 WBC 6.2 (3.8-10.6) k/uL RBC 4.80 (3.80-5.40) m/uL Hgb 15.2 (11.4-16.0) gm/dL Hct 43.4 (34.0-46.0) % MCV 90.3 (80.0-100.0) fL MCH 31.6 (25.0-35.0) pg MCHC 35.0 (31.0-37.0) g/dL RDW 12.3 (11.5-15.5) % Plt Count 292 (150-450) k/uL MPV 8.0 Neutrophils % 66 % Lymphocytes % 25 % Monocytes % 5 % Eosinophils % 2 % Basophils % 1 % Neutrophils # 4.1 (1.3-7.7) k/uL Lymphocytes # 1.6 (1.0-4.8) k/uL Monocytes # 0.3 (0-1.0) k/uL Eosinophils # 0.2 (0-0.7) k/uL Basophils # 0.1 (0-0.2) k/uL VBG pH 7.37 (7.31-7.41) VBG pCO2 37 (37-51) mmHg VBG HCO3 21 L (24-28) mmol/L Sodium (137-145) mmol/L Potassium (3.5-5.1) mmol/L Chloride (98-107) mmol/L Carbon Dioxide (22-30) mmol/L Anion Gap mmol/L BUN (7-17) mg/dL Creatinine (0.52-1.04) mg/dL Est GFR (CKD-EPI)AfAm (>60 ml/min/1.73 sqM) Est GFR (CKD-EPI)NonAf (>60 ml/min/1.73 sqM) Glucose (74-99) mg/dL POC Glucose (mg/dL) 476 H (70-110) mg/dL POC Glu Nurse Anesthesia Program Director ID Felipef Pranav Plasma Lactic Acid Hector (0.7-2.0) mmol/L Calcium (8.4-10.2) mg/dL Phosphorus (2.5-4.5) mg/dL Magnesium (1.6-2.3) mg/dL Total Bilirubin (0.2-1.3) mg/dL AST (14-36) U/L ALT (4-34) U/L Alkaline Phosphatase (38-126) U/L Total Protein (6.3-8.2) g/dL Albumin (3.5-5.0) g/dL Urine Color Urine Appearance (Clear) Urine pH (5.0-8.0) Ur Specific [place] (1.001-1.035) Urine Protein (Negative) Urine Glucose (UA) (Negative) Urine Ketones (Negative) Urine Blood (Negative) Urine Nitrite (Negative) Urine Bilirubin (Negative) Urine Urobilinogen (<2.0) mg/dL Ur Leukocyte Esterase (Negative) Urine RBC (0-5) /hpf Urine WBC (0-5) /hpf Ur Squamous Epith Cells (0-4) /hpf Urine Bacteria (None) /hpf Urine Mucus (None) /hpf Urine HCG, Qual (Not Detectd) Acetone, Qual (Negative) 12/08/22 12/08/22 12/08/22 Range/Units 00:15 00:15 00:50 WBC (3.8-10.6) k/uL RBC (3.80-5.40) m/uL Hgb (11.4-16.0) gm/dL Hct (34.0-46.0) % MCV (80.0-100.0) fL MCH (25.0-35.0) pg MCHC (31.0-37.0) g/dL RDW (11.5-15.5) % Plt Count (150-450) k/uL MPV Neutrophils % % Lymphocytes % % Monocytes % % Eosinophils % % Basophils % % Neutrophils # (1.3-7.7) k/uL Lymphocytes # (1.0-4.8) k/uL Monocytes # (0-1.0) k/uL Eosinophils # (0-0.7) k/uL Basophils # (0-0.2) k/uL VBG pH (7.31-7.41) VBG pCO2 (37-51) mmHg VBG HCO3 (24-28) mmol/L Sodium 127 L (137-145) mmol/L Potassium 4.2 (3.5-5.1) mmol/L Chloride 95 L (98-107) mmol/L Carbon Dioxide 20 L (22-30) mmol/L Anion Gap 12 mmol/L BUN 11 (7-17) mg/dL Creatinine 0.49 L (0.52-1.04) mg/dL Est GFR (CKD-EPI)AfAm >90 (>60 ml/min/1.73 sqM) Est GFR (CKD-EPI)NonAf >90 (>60 ml/min/1.73 sqM) Glucose 458 H (74-99) mg/dL POC Glucose (mg/dL) (70-110) mg/dL POC Glu Nurse Anesthesia Program Director ID Plasma Lactic Acid Hector 0.8 (0.7-2.0) mmol/L Calcium 9.0 (8.4-10.2) mg/dL Phosphorus 3.6 (2.5-4.5) mg/dL Magnesium 1.8 (1.6-2.3) mg/dL Total Bilirubin 0.7 (0.2-1.3) mg/dL AST 23 (14-36) U/L ALT 21 (4-34) U/L Alkaline Phosphatase 88 (38-126) U/L Total Protein 7.4 (6.3-8.2) g/dL Albumin 4.5 (3.5-5.0) g/dL Urine Color Colorless Urine Appearance Clear (Clear) Urine pH 5.5 (5.0-8.0) Ur Specific [place] 1.010 (1.001-1.035) Urine Protein Negative (Negative) Urine Glucose (UA) 4+ H (Negative) Urine Ketones 2+ H (Negative) Urine Blood Negative (Negative) Urine Nitrite Negative (Negative) Urine Bilirubin Negative (Negative) Urine Urobilinogen <2.0 (<2.0) mg/dL Ur Leukocyte Esterase Negative (Negative) Urine RBC 0 (0-5) /hpf Urine WBC 0 (0-5) /hpf Ur Squamous Epith Cells 2 (0-4) /hpf Urine Bacteria NONE (None) /hpf Urine Mucus NONE (None) /hpf Urine HCG, Qual (Not Detectd) Acetone, Qual Negative (Negative) 12/08/22 12/08/22 Range/Units 00:50 02:43 WBC (3.8-10.6) k/uL RBC (3.80-5.40) m/uL Hgb (11.4-16.0) gm/dL Hct (34.0-46.0) % MCV (80.0-100.0) fL MCH (25.0-35.0) pg MCHC (31.0-37.0) g/dL RDW (11.5-15.5) % Plt Count (150-450) k/uL MPV Neutrophils % % Lymphocytes % % Monocytes % % Eosinophils % % Basophils % % Neutrophils # (1.3-7.7) k/uL Lymphocytes # (1.0-4.8) k/uL Monocytes # (0-1.0) k/uL Eosinophils # (0-0.7) k/uL Basophils # (0-0.2) k/uL VBG pH (7.31-7.41) VBG pCO2 (37-51) mmHg VBG HCO3 (24-28) mmol/L Sodium (137-145) mmol/L Potassium (3.5-5.1) mmol/L Chloride (98-107) mmol/L Carbon Dioxide (22-30) mmol/L Anion Gap mmol/L BUN (7-17) mg/dL Creatinine (0.52-1.04) mg/dL Est GFR (CKD-EPI)AfAm (>60 ml/min/1.73 sqM) Est GFR (CKD-EPI)NonAf (>60 ml/min/1.73 sqM) Glucose (74-99) mg/dL POC Glucose (mg/dL) 266 H (70-110) mg/dL POC Glu Nurse Anesthesia Program Director ID Lizzette Hinkle Plasma Lactic Acid Hector (0.7-2.0) mmol/L Calcium (8.4-10.2) mg/dL Phosphorus (2.5-4.5) mg/dL Magnesium (1.6-2.3) mg/dL Total Bilirubin (0.2-1.3) mg/dL AST (14-36) U/L ALT (4-34) U/L Alkaline Phosphatase (38-126) U/L Total Protein (6.3-8.2) g/dL Albumin (3.5-5.0) g/dL Urine Color Urine Appearance (Clear) Urine pH (5.0-8.0) Ur Specific [place] (1.001-1.035) Urine Protein (Negative) Urine Glucose (UA) (Negative) Urine Ketones (Negative) Urine Blood (Negative) Urine Nitrite (Negative) Urine Bilirubin (Negative) Urine Urobilinogen (<2.0) mg/dL Ur Leukocyte Esterase (Negative) Urine RBC (0-5) /hpf Urine WBC (0-5) /hpf Ur Squamous Epith Cells (0-4) /hpf Urine Bacteria (None) /hpf Urine Mucus (None) /hpf Urine HCG, Qual Not Detected (Not Detectd) Acetone, Qual (Negative) Disposition Clinical Impression: Diabetes mellitus, new onset, Hyperglycemia Disposition: HOME SELF-CARE Condition: Stable Instructions (If sedation given, give patient instructions): Diabetic Hyperglycemia (ED), Diabetes and Nutrition (ED) Additional Instructions: Return to the emergency department with any new, worsening, or concerning symptoms. You will begin taking the metformin twice daily. Try to monitor your blood sugar at home and keep a log of these values. Follow up with your primary care provider in 1-2 days. Prescriptions: metFORMIN HCL 500 mg PO BID 10 Days #20 tablet Is patient prescribed a controlled substance at d/c from ED?: No Referrals: Norris Henriquez MD [Primary Care Provider] - 1-2 days
[2022-12-08 00:33] LABS: Basophils # (A) 0.1 k/uL (0-0.2); Basophils % (A) 1 %; Eosinophils # (A) 0.2 k/uL (0-0.7); Eosinophils % (A) 2 %; HCT 43.4 % (34.0-46.0); HGB 15.2 gm/dL (11.4-16.0); Lymphocytes # (A) 1.6 k/uL (1.0-4.8); Lymphocytes % (A) 25 %; MCH 31.6 pg (25.0-35.0); MCV 90.3 fL (80.0-100.0); Monocytes # (A) 0.3 k/uL (0-1.0); Monocytes % (A) 5 %; Neutrophils # (A) 4.1 k/uL (1.3-7.7); Neutrophils % (A) 66 %; Platelet Count 292 k/uL (150-450); RDW 12.3 % (11.5-15.5); WBC 6.2 k/uL (3.8-10.6)
[2022-12-08 00:51] LABS: ALT 21 U/L (4-34); AST 23 U/L (14-36); African American GFR (CKD) >90 (>60 ml/min/1.73 sqM); Albumin 4.5 g/dL (3.5-5.0); Alkaline Phosphatase 88 U/L (38-126); Anion Gap 12 mmol/L; Blood Urea Nitrogen 11 mg/dL (7-17); Carbon Dioxide 20 mmol/L (22-30); Chloride 95 mmol/L (98-107); Glucose 458 mg/dL (74-99); Magnesium 1.8 mg/dL (1.6-2.3); Non-African American GFR(CKD) >90 (>60 ml/min/1.73 sqM); Phosphorus 3.6 mg/dL (2.5-4.5); Potassium 4.2 mmol/L (3.5-5.1); Sodium 127 mmol/L (137-145); Total Bilirubin 0.7 mg/dL (0.2-1.3); Total Protein 7.4 g/dL (6.3-8.2)
[2022-12-08 01:02] LABS: VBG PH 7.37 (7.31-7.41)
[2022-12-08] MEDS ORDERED: SODIUM CHLORIDE 0.9% 1,000 ML IV STA ×2 (01:06→02:05)
[2022-12-08 01:13] VITALS: RESP 16
[2022-12-08 01:17] LABS: Appearance,Urine Clear (Clear); Color,Urine Colorless; Glucose,Urine (UA) 4+ (Negative); PH, Urine 5.5 (5.0-8.0); Protein,Urine Negative (Negative)
[2022-12-08 01:19] LABS: Bilirubin,Urine Negative (Negative); Blood,Urine Negative (Negative); Ketones,Urine 2+ (Negative); Leukocyte Esterase,Urine Negative (Negative); Nitrite,Urine Negative (Negative); Urobilinogen,Urine <2.0 mg/dL (<2.0)
[2022-12-08 01:33] LABS: RBC,Urine 0 /hpf (0-5); Squamous Epithelial Cell,Urine 2 /hpf (0-4); WBC,Urine 0 /hpf (0-5)
[2022-12-08] MEDS ORDERED: INSULIN REGULAR 100 UNIT/ML VIAL (IV) IV ONE (01:36)
[2022-12-08 02:45] VITALS: BP 98/64; PULSE 76
[2022-12-08 02:45] LABS: Glucose,Whole Blood 266 mg/dL (70-110)
[2022-12-08] MEDS ORDERED: INSULIN REGULAR 100 UNIT/ML VIAL (IM/SQ) SQ ONE (03:03)
== END 2022-12-08 03:41 | disposition home or self-care (01) ==
LOC: EC 23:31
DX: E11.65 Type 2 diabetes mellitus with hyperglycemia (principal); F12.90 Cannabis use, unspecified, uncomplicated; Z87.891 Personal history of nicotine dependence
CPT/HCPCS: 36415; 80053; 81003; 81025; 82009; 82803; 83036; 83605; 83735; 84100; 85025; 96360; 96361; 99283

== ENCOUNTER 2022-12-14 13:39 | Emergency (ER) | payer BC ==
[2022-12-14 13:44] LABS: Glucose,Whole Blood 510 mg/dL (70-110)
[2022-12-14 14:03] LABS: HCT 43.4 % (34.0-46.0); MCH 31.8 pg (25.0-35.0); MCHC 34.5 g/dL (31.0-37.0); MCV 92.1 fL (80.0-100.0); Platelet Count 329 k/uL (150-450); RBC 4.72 m/uL (3.80-5.40); RDW 12.3 % (11.5-15.5); WBC 4.2 k/uL (3.8-10.6)
[2022-12-14 14:17] LABS: ALT 27 U/L (4-34); AST 28 U/L (14-36); African American GFR (CKD) >90 (>60 ml/min/1.73 sqM); Albumin 4.6 g/dL (3.5-5.0); Alkaline Phosphatase 74 U/L (38-126); Anion Gap 13 mmol/L; Blood Urea Nitrogen 7 mg/dL (7-17); Calcium 9.2 mg/dL (8.4-10.2); Carbon Dioxide 23 mmol/L (22-30); Chloride 95 mmol/L (98-107); Glucose 497 mg/dL (74-99); Non-African American GFR(CKD) >90 (>60 ml/min/1.73 sqM); Potassium 4.6 mmol/L (3.5-5.1); Sodium 131 mmol/L (137-145); Total Bilirubin 0.5 mg/dL (0.2-1.3); Total Protein 7.1 g/dL (6.3-8.2)
--- NOTE | 2022-12-14 14:21 | ED ---
Recheck HPI - General Source: patient, RN notes reviewed Mode of arrival: ambulatory Limitations: no limitations - History of Present Illness MD Complaint: other (Elevated blood sugar) <Dalia Kumar - Last Filed: 12/14/22 14:21> - General Source: patient, family, RN notes reviewed <Parker Huffman - Last Filed: 12/14/22 18:39> - General Chief Complaint: Recheck/Abnormal Lab/Rx Stated Complaint: High blood sugar Time Seen by Provider: 12/14/22 14:15 - History of Present Illness Initial Comments: This is a 31-year-old female who presents to the emergency department for elevated blood sugar and headaches. Patient was just recently diagnosed with diabetes last month, and was last evaluated here about a week ago for elevated blood sugar. Her metformin was increased from 500 mg once a day to 500 mg twice a day. She has been taking this as prescribed, however she continues to have elevated blood sugar in the mid 400s. Denies any nausea or vomiting. (Dalia Kumar) Patient is a 31-year-old female with past medical history remarkable for recently diagnosed diabetes mellitus [id number] who presents emergency Department complaining of high blood sugars as well as mild headache. Workup initially started as a quick note. Has been having blood sugars above 300s at home. Currently is above 500. States she has been compliant with medications. Had one episode of nausea and vomiting earlier. Denies any chest pain, shortness breath, abdominal pain, fevers, chills, cough. Denies any sick contacts. States she is only on oral medications, metformin and an unknown second medication. Is not on insulin. They have been making medication adjustments. Pulse up with her PCP for this. Has no other acute complaint at this time other than a typical headache for her. Denies any blurry vision or weakness or numbness. Presents for further evaluation at this time. Workup was started in triage. (Parker Huffman) - Related Data Home Medications Medication Instructions Recorded Confirmed Levothyroxine Sodium [Synthroid] 100 mcg PO DAILY 04/16/22 04/24/22 Previous Rx's Medication Instructions Recorded Cyclobenzaprine [Flexeril] 5 mg PO TID #90 tablet 04/26/22 Gabapentin [Neurontin] 300 mg PO BID #60 cap 04/26/22 HYDROcodone/APAP 7.5-325MG [Sandy 1 tab PO Q4-6H PRN #56 tab 04/26/22 7.5] Sennosides/Docusate Sodium [Senna 1 each PO DAILY PRN #20 tablet 04/26/22 Plus 8.6-50 mg Tablet] cefaDROXiL [Duricef] 500 mg PO Q12HR 3 Days #6 cap 04/26/22 Cephalexin [Keflex] 500 mg PO Q6HR #28 cap 12/02/22 Nystatin 100,000 Unit/gm Powd 1 applic TOPICAL BID #15 gram 12/02/22 [Mycostatin Powder] Sulfamethox-Tmp 800-160Mg [Bactrim 1 each PO Q12HR #14 tab 12/02/22 Ds] metFORMIN HCL 500 mg PO DAILY #7 tablet 12/02/22 metFORMIN HCL 500 mg PO BID 10 Days #20 tablet 12/08/22 Allergies Allergy/AdvReac Type Severity Reaction Status Date / Time No Known Allergies Allergy Verified 12/14/22 13:44 Review of Systems ROS Other: All systems not noted in ROS Statement are negative. <Dalia Kumar - Last Filed: 12/14/22 14:21> ROS Other: All systems not noted in ROS Statement are negative. <Parker Huffman - Last Filed: 12/14/22 18:39> ROS Statement: Those systems with pertinent positive or pertinent negative responses have been documented in the HPI. Review of Systems: CONST: Denies fever EYES: Denies blurry vision ENT: Denies nasal congestion C/V: Denies Chest pain RESP: Denies shortness of breath GI: Denies abdominal pain : Denies dysuria SKIN: Denies rash. MSK: Denies joint pain. NEURO: Endorses headache (Parker Huffman) Past Medical History Past Medical History: Diabetes Mellitus Additional Past Medical History / Comment(s): BACK PAIN History of Any Multi-Drug Resistant Organisms: None Reported Past Surgical History: Appendectomy Past Anesthesia/Blood Transfusion Reactions: No Reported Reaction Past Psychological History: ADD/ADHD, Bipolar Smoking Status: Former smoker Past Alcohol Use History: Occasional Past Drug Use History: Marijuana - Past Family History Mother Family Medical History: Diabetes Mellitus <Dalia Kumar - Last Filed: 12/14/22 14:21> General Exam Limitations: no limitations <Dalia Kumar - Last Filed: 12/14/22 14:21> <Parker Huffman - Last Filed: 12/14/22 18:39> - General Exam Comments Initial Comments: Visual Physical Exam Vital signs reviewed General: Well-appearing, nontoxic, no acute distress. Head: Normocephalic, atraumatic Eyes: PERRLA, EOMI ENT: Airway patent Chest: Nonlabored breathing Skin: No visual rash, normal skin tone Neuro: Alert and oriented 3 Musculoskeletal: No gross abnormalities (Dalia Kumar) General: Appears in no acute distress. HEAD: Normal with no signs of head trauma. EYES: PERRLA, EOMI, conjunctiva normal, no discharge. ENT: Hearing grossly intact, normal oropharynx. RESPIRATORY: Clear breath sounds bilaterally. No wheezes, rales, or rhonchi. C/V: Regular rate and rhythm. S1 and S2 auscultated, no edema, peripheral pulses 2+ and intact throughout ABD: Abd is soft, nontender, nondistended EXT: Normal range of motion, no obvious deformity SKIN: No rashes or lesions observed on exposed skin. NEURO: Alert and oriented 4. (Parekr Huffman) Course Vital Signs 12/14/22 12/14/22 12/14/22 13:41 16:20 18:00 Temperature 98.5 F 97 F L 98.2 F Pulse Rate 104 H 93 73 Respiratory 16 18 18 Rate Blood Pressure 126/79 110/76 109/77 O2 Sat by Pulse 99 100 100 Oximetry Medical Decision Making - Lab Data Result diagrams: 12/14/22 13:54 12/14/22 13:54 <Dalia Kumar - Last Filed: 12/14/22 14:21> - Lab Data Result diagrams: 12/14/22 13:54 12/14/22 13:54 <Parker Huffman - Last Filed: 12/14/22 18:39> - Medical Decision Making I performed the QuickNote portion of this chart. Signed Dalia Kumar PA-C. (Dalia Kumar) Was pt. sent in by a medical professional or institution ([facility] Finch, COVER SEAMER, urgent care, hospital, or fdc...) When possible be specific @ -No Did you speak to anyone other than the patient for history (EMS, parent, family, police, friend...)? What history was obtained from this source @ -No Did you review nursing and triage notes (agree or disagree)? Why? @ -I reviewed and agree with nursing and triage notes Were old charts reviewed (outside hosp., previous admission, EMS record, old EKG, old radiological studies, urgent care reports/EKG's, fdc records)? Report findings @ -Reviewed quickly on reevaluation from earlier. Differential Diagnosis (chest pain, altered mental status, abdominal pain women, abdominal pain men, vaginal bleeding, weakness, fever, dyspnea, syncope, headache, dizziness, GI bleed, back pain, seizure, CVA, palpatations, mental health, musculoskeletal)? @ -Hyperglycemia, poorly controlled diabetes, electrolyte abnormalities, dehydration, infection. This list is not all inclusive. EKG interpreted by me (3pts min.). @ -None done X-rays interpreted by me (1pt min.). @ -None done CT interpreted by me (1pt min.). @ -None done U/S interpreted by me (1pt. min.). @ -None done What testing was considered but not performed or refused? (CT, X-rays, U/S, labs)? Why? @ -None What meds were considered but not given or refused? Why? @ -None Did you discuss the management of the patient with other professionals (professionals i.e. , PA, COVER SEAMER, lab, RT, psych nurse, social media executive, sales compensation analyst, teacher, airport operations officer, rn case management)? Give summary @ -No Was smoking cessation discussed for >3mins.? @ -No Was critical care preformed (if so, how long)? @ -No Were there social determinants of health that impacted care today? How? (Homelessness, low income, unemployed, alcoholism, drug addiction, transportation, low edu. Level, literacy, decrease access to med. care, fpc, rehab)? @ -No Was there de-escalation of care discussed even if they declined (Discuss DNR or withdrawal of care, Hospice)? DNR status @ -No What co-morbidities impacted this encounter? (DM, HTN, Smoking, COPD, CAD, Cancer, CVA, ARF, Chemo, Hep., AIDS, mental health diagnosis, sleep apnea, morbid obesity)? @ -Ybl-cdjkpem-tizflsups diabetes Was patient admitted / discharged? Hospital course, mention meds given and route, prescriptions, significant lab abnormalities, going to OR and other pertinent info. @ -Based on the Patient's presentation and physical exam, presents with hyperglycemia. Workup was started in triage as a quick note. Vital signs within acceptable limits. I'm in agreement with the workup here we will sent directly treat the patient with a liter and a half IV fluid bolus as well as migraine cocktail consisting of IV Benadryl, Toradol, Reglan. She was in agreement this plan. Patient's labs returned remarkable for hyperglycemia at 497. No evidence of DKA. No anion gap metabolic acidosis. Patient has pseudohyponatremia secondary to hyperglycemia. Remainder the labs within acceptable limits. Following multiple fluid boluses, patient's blood glucose level is 233. She is asymptomatic. I recommended discharge home at this time with close follow-up with her primary care physician. She was in agreement this plan. We discussed glycemic control. Strict return precautions discussed. Patient states she has been compliant with all medications. I instructed the patient to follow up with their PCP in the next 1-3 days. I explained that the patient should return to the emergency department if they experience any worsening symptoms. Strict return precautions were discussed with the patient. The patient expressed understanding of these instructions. I answered all questions that the patient had. The patient was discharged home in good condition with their prescriptions and follow up information. Undiagnosed new problem with uncertain prognosis? @ -No Drug Therapy requiring intensive monitoring for toxicity (Heparin, Nitro, Insulin, Cardizem)? @ -No Were any procedures done? @ -No Diagnosis/symptom? @ -Hyperglycemia in the setting of vvr-hffeubw-tfqopstuj diabetes, headache Acute, or Chronic, or Acute on Chronic? @ -Acute Uncomplicated (without systemic symptoms) or Complicated (systemic symptoms)? @ -Complicated Side effects of treatment? @ -No Exacerbation, Progression, or Severe Exacerbation? @ -No Poses a threat to life or bodily function? How? (Chest pain, [place], [place], pneumonia, PE, COPD, DKA, ARF, appy, cholecystitis, CVA, Diverticulitis, Homicidal, Suicid al, threat to staff... and all critical care pts) @ -No (Parker Huffman) - Lab Data Lab Results 12/14/22 12/14/22 12/14/22 Range/Units 13:43 13:54 13:54 WBC 4.2 (3.8-10.6) k/uL RBC 4.72 (3.80-5.40) m/uL Hgb 15.0 (11.4-16.0) gm/dL Hct 43.4 (34.0-46.0) % MCV 92.1 (80.0-100.0) fL MCH 31.8 (25.0-35.0) pg MCHC 34.5 (31.0-37.0) g/dL RDW 12.3 (11.5-15.5) % Plt Count 329 (150-450) k/uL MPV 8.0 Sodium 131 L (137-145) mmol/L Potassium 4.6 (3.5-5.1) mmol/L Chloride 95 L (98-107) mmol/L Carbon Dioxide 23 (22-30) mmol/L Anion Gap 13 mmol/L BUN 7 (7-17) mg/dL Creatinine 0.46 L (0.52-1.04) mg/dL Est GFR (CKD-EPI)AfAm >90 (>60 ml/min/1.73 sqM) Est GFR (CKD-EPI)NonAf >90 (>60 ml/min/1.73 sqM) Glucose 497 H (74-99) mg/dL POC Glucose (mg/dL) 510 H (70-110) mg/dL POC Glu Battery Container Tester ID Calcium 9.2 (8.4-10.2) mg/dL Total Bilirubin 0.5 (0.2-1.3) mg/dL AST 28 (14-36) U/L ALT 27 (4-34) U/L Alkaline Phosphatase 74 (38-126) U/L Total Protein 7.1 (6.3-8.2) g/dL Albumin 4.6 (3.5-5.0) g/dL Urine Color Urine Appearance (Clear) Urine pH (5.0-8.0) Ur Specific Harper (1.001-1.035) Urine Protein (Negative) Urine Glucose (UA) (Negative) Urine Ketones (Negative) Urine Blood (Negative) Urine Nitrite (Negative) Urine Bilirubin (Negative) Urine Urobilinogen (<2.0) mg/dL Ur Leukocyte Esterase (Negative) Acetone, Qual Negative (Negative) 12/14/22 12/14/22 Range/Units 16:23 17:43 WBC (3.8-10.6) k/uL RBC (3.80-5.40) m/uL Hgb (11.4-16.0) gm/dL Hct (34.0-46.0) % MCV (80.0-100.0) fL MCH (25.0-35.0) pg MCHC (31.0-37.0) g/dL RDW (11.5-15.5) % Plt Count (150-450) k/uL MPV Sodium (137-145) mmol/L Potassium (3.5-5.1) mmol/L Chloride (98-107) mmol/L Carbon Dioxide (22-30) mmol/L Anion Gap mmol/L BUN (7-17) mg/dL Creatinine (0.52-1.04) mg/dL Est GFR (CKD-EPI)AfAm (>60 ml/min/1.73 sqM) Est GFR (CKD-EPI)NonAf (>60 ml/min/1.73 sqM) Glucose (74-99) mg/dL POC Glucose (mg/dL) 233 H (70-110) mg/dL POC Glu Battery Container Tester ID Kaya Cook Calcium (8.4-10.2) mg/dL Total Bilirubin (0.2-1.3) mg/dL AST (14-36) U/L ALT (4-34) U/L Alkaline Phosphatase (38-126) U/L Total Protein (6.3-8.2) g/dL Albumin (3.5-5.0) g/dL Urine Color Light Yellow Urine Appearance Clear (Clear) Urine pH 5.5 (5.0-8.0) Ur Specific Harper 1.035 (1.001-1.035) Urine Protein Negative (Negative) Urine Glucose (UA) 4+ H (Negative) Urine Ketones 1+ H (Negative) Urine Blood Negative (Negative) Urine Nitrite Negative (Negative) Urine Bilirubin Negative (Negative) Urine Urobilinogen <2.0 (<2.0) mg/dL Ur Leukocyte Esterase Negative (Negative) Acetone, Qual (Negative) Disposition <Dalia Kumar - Last Filed: 12/14/22 14:21> Is patient prescribed a controlled substance at d/c from ED?: No Time of Disposition: 17:52 <Parker Huffman - Last Filed: 12/14/22 18:39> Clinical Impression: Diabetes, Hyperglycemia, Headache Disposition: HOME SELF-CARE Condition: Good Instructions (If sedation given, give patient instructions): Diabetic Hyperglycemia (ED) Referrals: Norris Henriquez MD [Primary Care Provider] - 1-2 days
[2022-12-14 16:21] VITALS: RESP 18
[2022-12-14] MEDS ORDERED: diphenhydrAMINE 50 MG/ML 1 ML VIAL IVP STA (16:35)
[2022-12-14] MEDS ORDERED: METOCLOPRAMIDE 5 MG/ML 2 ML VIAL IVP STA (16:35)
[2022-12-14] MEDS ORDERED: SODIUM CHLORIDE 0.9% 1,000 ML IV STA (16:35)
[2022-12-14] MEDS ORDERED: SODIUM CHLORIDE 0.9% 500 ML 500 ML IV STA (16:35)
[2022-12-14] MEDS ORDERED: KETOROLAC 15 MG/ML 1 ML VIAL IVP STA (16:35)
[2022-12-14 16:36] LABS: Appearance,Urine Clear (Clear); Bilirubin,Urine Negative (Negative); Blood,Urine Negative (Negative); Color,Urine Light Yellow; Glucose,Urine (UA) 4+ (Negative); Ketones,Urine 1+ (Negative); Leukocyte Esterase,Urine Negative (Negative); Nitrite,Urine Negative (Negative); PH, Urine 5.5 (5.0-8.0); Protein,Urine Negative (Negative); Specific Gravity,Urine 1.035 (1.001-1.035); Urobilinogen,Urine <2.0 mg/dL (<2.0)
[2022-12-14 17:44] LABS: Glucose,Whole Blood 233 mg/dL (70-110)
[2022-12-14 18:03] VITALS: BP 109/77; PULSE 73; TEMP 98.2
== END 2022-12-14 18:15 | disposition home or self-care (01) ==
LOC: EC 13:39
DX: E11.65 Type 2 diabetes mellitus with hyperglycemia (principal); R51.9 Headache, unspecified; Z87.891 Personal history of nicotine dependence; F12.90 Cannabis use, unspecified, uncomplicated
CPT/HCPCS: 36415; 80053; 82009; 85027; 81003; 99284; 96374; 96375 ×2; 96361; J1200; J2765; J1885

== ENCOUNTER 2023-11-29 01:43 | Emergency (ER) | payer BC, OTHER ==
[2023-11-29 01:47] VITALS: RESP 16
[2023-11-29] MEDS: KETOROLAC 15 MG/ML 1 ML VIAL IVP STA (02:08)
[2023-11-29] MEDS: ONDANSETRON 4 MG/2 ML VIAL IVP STA (02:08)
[2023-11-29] MEDS: SODIUM CHLORIDE 0.9% 2,000 ML IV ONE (02:10)
[2023-11-29] MEDS: HYDROmorphone 0.5 MG/0.5 ML SYRINGE IVP STA (02:10)
--- NOTE | 2023-11-29 02:16 | ED ---
General Adult HPI - General Chief complaint: Nausea/Vomiting/Diarrhea Stated complaint: Tooth Pain Time Seen by Provider: 11/29/23 01:46 Source: patient, RN notes reviewed Mode of arrival: ambulatory Limitations: no limitations - History of Present Illness Initial comments: 32-year-old female presents emergency department complaint of right-sided dental pain. Patient had 2 teeth extracted by [facility] on Saturday. Patient states the teeth were infected. Patient was discharged with Tylenol codeine she states that she has had nausea vomiting she is concerned as she is diabetic. Patient states her blood sugar was over 200. Patient states she has not been placed on any antibiotics she has no nausea meds. Patient has right-sided facial swelling no fevers or chills no difficulty swallowing. - Related Data Home Medications Medication Instructions Recorded Confirmed Glimepiride [Amaryl] 1 mg PO BID 12/14/22 12/14/22 Levothyroxine Sodium [Synthroid] 25 mcg PO DAILY 12/14/22 12/14/22 Previous Rx's Medication Instructions Recorded metFORMIN HCL 500 mg PO BID 10 Days #20 tablet 12/08/22 Amoxic-Pot Clav 875-125Mg 1 tab PO Q12HR #14 tab 11/29/23 [Augmentin 875-125] HYDROcodone/APAP 10-325MG [[place] 1 tab PO Q6HR PRN 3 Days #12 tab 11/29/23 10-325] Ondansetron Odt [Zofran Odt] 4 mg PO Q8HR PRN #10 tab 11/29/23 Allergies Allergy/AdvReac Type Severity Reaction Status Date / Time No Known Allergies Allergy Verified 11/29/23 01:47 Review of Systems ROS Statement: Those systems with pertinent positive or pertinent negative responses have been documented in the HPI. ROS Other: All systems not noted in ROS Statement are negative. Past Medical History Past Medical History: Diabetes Mellitus Additional Past Medical History / Comment(s): BACK PAIN History of Any Multi-Drug Resistant Organisms: None Reported Past Surgical History: Appendectomy Past Anesthesia/Blood Transfusion Reactions: No Reported Reaction Past Psychological History: ADD/ADHD, Bipolar Smoking Status: Former smoker Past Alcohol Use History: Occasional Past Drug Use History: Marijuana - Past Family History Mother Family Medical History: Diabetes Mellitus General Exam Limitations: no limitations General appearance: alert, in no apparent distress Head exam: Present: atraumatic, normocephalic, normal inspection Eye exam: Present: normal appearance, PERRL, EOMI. Absent: scleral icterus, conjunctival injection, periorbital swelling ENT exam: Present: mucous membranes moist, TM's normal bilaterally. Absent: normal oropharynx (No active bleeding right lower, there is swelling noted, tenderness to palpation sutures are in place) Neck exam: Present: normal inspection, full ROM. Absent: tenderness, meningismus, lymphadenopathy Respiratory exam: Present: normal lung sounds bilaterally. Absent: respiratory distress, wheezes, rales, rhonchi, stridor Cardiovascular Exam: Present: regular rate, normal rhythm, normal heart sounds. Absent: systolic murmur, diastolic murmur, rubs, gallop, clicks Course Vital Signs 11/29/23 11/29/23 01:45 03:17 Temperature 98.1 F 98.2 F Pulse Rate 99 88 Respiratory 16 16 Rate Blood Pressure 128/82 123/81 O2 Sat by Pulse 100 100 Oximetry Medical Decision Making - Medical Decision Making Was pt. sent in by a medical professional or institution (, PA, ASSOCIATE PROFESSOR OF VIOLIN, urgent care, hospital, or usp...) When possible be specific @ -No Did you speak to anyone other than the patient for history (EMS, parent, family, police, friend...)? What history was obtained from this source @ -No Did you review nursing and triage notes (agree or disagree)? Why? @ -I reviewed and agree with nursing and triage notes Were old charts reviewed (outside hosp., previous admission, EMS record, old EKG, old radiological studies, urgent care reports/EKG's, usp records)? Report findings @ -No old charts were reviewed Differential Diagnosis (chest pain, altered mental status, abdominal pain women, abdominal pain men, vaginal bleeding, weakness, fever, dyspnea, syncope, headache, dizziness, GI bleed, back pain, seizure, CVA, palpatations, mental health, musculoskeletal)? @ -Dental pain, dental extraction, abscess, dry socket EKG interpreted by me (3pts min.). @ -None X-rays interpreted by me (1pt min.). @ -None done CT interpreted by me (1pt min.). @ -None done U/S interpreted by me (1pt. min.). @ -None done What testing was considered but not performed or refused? (CT, X-rays, U/S, labs)? Why? @ -None What meds were considered but not given or refused? Why? @ -None Did you discuss the management of the patient with other professionals (professionals i.e. , PA, ASSOCIATE PROFESSOR OF VIOLIN, lab, RT, psych nurse, high school social science teacher, exhaust and muffler fitter, teacher, donor relations officer, vocational case manager)? Give summary @ -No Was smoking cessation discussed for >3mins.? @ -No Was critical care preformed (if so, how long)? @ -No Were there social determinants of health that impacted care today? How? (Homelessness, low income, unemployed, alcoholism, drug addiction, transportation, low edu. Level, literacy, decrease access to med. care, [facility], rehab)? @ -No Was there de-escalation of care discussed even if they declined (Discuss DNR or withdrawal of care, Hospice)? DNR status @ -No What co-morbidities impacted this encounter? (DM, HTN, Smoking, COPD, CAD, Cancer, CVA, ARF, Chemo, Hep., AIDS, mental health diagnosis, sleep apnea, morbid obesity)? @ -Diabetes Was patient admitted / discharged? Hospital course, mention meds given and route, prescriptions, significant lab abnormalities, going to OR and other pertinent info. @ -Discharge patient feels greatly improved this time will be discharged with oral antibiotics, analgesics and close follow-up. Undiagnosed new problem with uncertain prognosis? @ -No Drug Therapy requiring intensive monitoring for toxicity (Heparin, Nitro, Insulin, Cardizem)? @ -No Were any procedures done? @ -No Diagnosis/symptom? @ -Dental pain, dental extraction, diabetes Acute, or Chronic, or Acute on Chronic? @ -Acute Uncomplicated (without systemic symptoms) or Complicated (systemic symptoms)? @ -Uncomplicated Side effects of treatment? @ -No Exacerbation, Progression, or Severe Exacerbation? @ -No Poses a threat to life or bodily function? How? (Chest pain, [place], [place], pneumonia, PE, COPD, DKA, ARF, appy, cholecystitis, CVA, Diverticulitis, Homicidal, Suicidal, threat to staff... and all critical care pts) @ -No - Lab Data Result diagrams: 11/29/23 02:04 11/29/23 02:04 Lab Results 11/29/23 11/29/23 Range/Units 02:04 02:04 WBC 6.2 (3.8-10.6) k/uL RBC 4.71 (3.80-5.40) m/uL Hgb 14.7 (11.4-16.0) gm/dL Hct 44.2 (34.0-46.0) % MCV 93.9 (80.0-100.0) fL MCH 31.2 (25.0-35.0) pg MCHC 33.2 (31.0-37.0) g/dL RDW 12.0 (11.5-15.5) % Plt Count 397 (150-450) k/uL MPV 7.1 Neutrophils % 60 % Lymphocytes % 28 % Monocytes % 6 % Eosinophils % 3 % Basophils % 0 % Neutrophils # 3.7 (1.3-7.7) k/uL Lymphocytes # 1.8 (1.0-4.8) k/uL Monocytes # 0.4 (0-1.0) k/uL Eosinophils # 0.2 (0-0.7) k/uL Basophils # 0.0 (0-0.2) k/uL Sodium 137 (137-145) mmol/L Potassium 4.2 (3.5-5.1) mmol/L Chloride 102 (98-107) mmol/L Carbon Dioxide 27 (22-30) mmol/L Anion Gap 8 mmol/L BUN 8 (7-17) mg/dL Creatinine 0.52 (0.52-1.04) mg/dL Est GFR (CKD-EPI)AfAm >90 (>60 ml/min/1.73 sqM) Est GFR (CKD-EPI)NonAf >90 (>60 ml/min/1.73 sqM) Glucose 135 H (74-99) mg/dL Calcium 9.5 (8.4-10.2) mg/dL Total Bilirubin 0.7 (0.2-1.3) mg/dL AST 33 (14-36) U/L ALT 32 (4-34) U/L Alkaline Phosphatase 60 (38-126) U/L Total Protein 7.5 (6.3-8.2) g/dL Albumin 4.9 (3.5-5.0) g/dL Disposition Clinical Impression: Pain, dental Disposition: HOME SELF-CARE Condition: Stable Instructions (If sedation given, give patient instructions): Toothache (ED) Additional Instructions: Please return to emergency department for any worsening change symptoms or any other concerns Prescriptions: Amoxic-Pot Clav 875-125Mg [Augmentin 875-125] 1 tab PO Q12HR #14 tab HYDROcodone/APAP 10-325MG [[place] 10-325] 1 tab PO Q6HR PRN 3 Days #12 tab PRN Reason: pain Ondansetron Odt [Zofran Odt] 4 mg PO Q8HR PRN #10 tab PRN Reason: Nausea Is patient prescribed a controlled substance at d/c from ED?: Yes When asked, does pt state using other controlled substances?: No If prescribed controlled substance>3 days was MAPS reviewed?: Prescribed <3 Days If opioid is for acute pain is fill amount 7 days or less?: Yes If Rx opioid, was Start Talking consent form obtained?: Yes Referrals: None,Stated [Primary Care Provider] - 1-2 days Time of Disposition: 03:04
[2023-11-29 02:55] LABS: Basophils % (A) 0 %; Eosinophils # (A) 0.2 k/uL (0-0.7); Eosinophils % (A) 3 %; HCT 44.2 % (34.0-46.0); HGB 14.7 gm/dL (11.4-16.0); Lymphocytes # (A) 1.8 k/uL (1.0-4.8); Lymphocytes % (A) 28 %; MCH 31.2 pg (25.0-35.0); MCHC 33.2 g/dL (31.0-37.0); MCV 93.9 fL (80.0-100.0); Mean Platelet Volume 7.1; Monocytes # (A) 0.4 k/uL (0-1.0); Monocytes % (A) 6 %; Neutrophils # (A) 3.7 k/uL (1.3-7.7); Neutrophils % (A) 60 %; Platelet Count 397 k/uL (150-450); RBC 4.71 m/uL (3.80-5.40); WBC 6.2 k/uL (3.8-10.6)
[2023-11-29 02:56] LABS: ALT 32 U/L (4-34); AST 33 U/L (14-36); African American GFR (CKD) >90 (>60 ml/min/1.73 sqM); Albumin 4.9 g/dL (3.5-5.0); Alkaline Phosphatase 60 U/L (38-126); Anion Gap 8 mmol/L; Blood Urea Nitrogen 8 mg/dL (7-17); Calcium 9.5 mg/dL (8.4-10.2); Carbon Dioxide 27 mmol/L (22-30); Chloride 102 mmol/L (98-107); Glucose 135 mg/dL (74-99); Non-African American GFR(CKD) >90 (>60 ml/min/1.73 sqM); Potassium 4.2 mmol/L (3.5-5.1); Sodium 137 mmol/L (137-145); Total Bilirubin 0.7 mg/dL (0.2-1.3); Total Protein 7.5 g/dL (6.3-8.2)
[2023-11-29] MEDS: HYDROcodone/APAP 5-325MG 1 EACH TAB PO STA (03:13)
[2023-11-29] MEDS: ONDANSETRON 4 MG ODT STARTER PACK 2 TAB BTL PO STA (03:14)
[2023-11-29 03:19] VITALS: BP 123/81; PULSE 88; TEMP 98.2
== END 2023-11-29 03:18 | disposition home or self-care (01) ==
LOC: EC 01:43
DX: K08.89 Other specified disorders of teeth and supporting structures (principal); E11.9 Type 2 diabetes mellitus without complications; Z87.891 Personal history of nicotine dependence
CPT/HCPCS: 36415; 80053; 85025; 99283; 96374; 96375 ×2; 96361; J2405; J1885; S0119; J1170

== ENCOUNTER 2023-12-27 21:23 | Emergency (ER) | payer OTHER ==
[2023-12-27] MEDS ORDERED: KETOROLAC 15 MG/ML 1 ML VIAL ONE (22:41)
[2023-12-27] MEDS ORDERED: ONDANSETRON 4 MG/2 ML VIAL ONE (22:41)
[2023-12-27] MEDS ORDERED: diphenhydrAMINE 50 MG/ML 1 ML VIAL ONE (22:42)
[2023-12-27] MEDS ORDERED: SODIUM CHLORIDE 0.9% 1,000 ML BAG ONE (23:55)
--- NOTE | 2024-02-04 20:38 | CT ---
EXAM: CT Head Without Intravenous Contrast CLINICAL HISTORY: Headache and nausea x1 day TECHNIQUE: Axial computed tomography images of the head/brain without intravenous contrast. CTDI is 49.2 mGy and DLP is 1051.1 mGy-cm. This CT exam was performed using one or more of the following dose reduction techniques: automated exposure control, adjustment of the mA and/or kV according to patient size, and/or use of iterative reconstruction technique. COMPARISON: No relevant prior studies available. FINDINGS: No acute intracranial hemorrhage. No midline shift or mass effect. The territorial shay-white matter differentiation is maintained throughout. The ventricles and sulci are commensurate with age. The visualized orbits appear grossly unremarkable. The calvarium is intact. The visualized paranasal sinuses and mastoid air cells are grossly clear. IMPRESSION: No acute intracranial hemorrhage, midline shift, or mass effect. Radiologist: Shekhar Meléndez MD Electronically Signed: 12/28/23 01:32 Study ready at 23:51 and initial results transmitted at 01:32 [facility]
== END 2023-12-28 00:54 | disposition home or self-care (01) ==
LOC: EC 21:23
DX: G43.909 Migraine, unspecified, not intractable, without status migrainosus (principal)
CPT/HCPCS: 70450

== ENCOUNTER 2024-03-18 17:49 | Emergency (ER) | payer OTHER ==
[2024-03-18 17:58] VITALS: RESP 18; TEMP 98.2
[2024-03-18 17:59] LABS: Glucose,Whole Blood 141 mg/dL (70-110)
--- NOTE | 2024-03-18 18:07 | ED ---
Recheck HPI - General Source: patient, family, RN notes reviewed Mode of arrival: wheelchair Limitations: no limitations <Basia Santiago - Last Filed: 03/18/24 18:06> - General Source: patient, family, RN notes reviewed <Parker Huffman - Last Filed: 03/18/24 22:45> - General Chief Complaint: Recheck/Abnormal Lab/Rx Stated Complaint: Low blood sugar Time Seen by Provider: 03/18/24 18:00 - History of Present Illness Initial Comments: Quick [id number] female history of type 2 diabetes for the emergency room chief complaint of low blood sugar. Patient states that her blood sugar has been in the 80s throughout the day today. States that she has not taken her medication as prescribed. Endorses mild weakness and nausea. (Basia Santiago) Patient is a 33-year-old female with past medical history remarkable for insuli n-dependent diabetes log acting Lantus 8 units every morning. States she has been having a few days where she has been having slightly lower blood sugars than normal. Has been eating normally. Home blood sugar checks are near 80. States they do not get any lower than this. Denies any symptoms however wants to be evaluated. Has not tried to follow-up with Dr. Mancuso her mine deputy. Presents for further evaluation at this time. Denies chest pain, shortness of breath, abdominal pain, nausea, vomiting. Originally seen as a quick note. I evaluated patient when she was placed in a room.Patient has been complaining of a sore throat. (Parker Huffman) - Related Data Home Medications Medication Instructions Recorded Confirmed Glimepiride [Amaryl] 1 mg PO BID 12/14/22 12/14/22 Levothyroxine Sodium [Synthroid] 25 mcg PO DAILY 12/14/22 12/14/22 Previous Rx's Medication Instructions Recorded metFORMIN HCL 500 mg PO BID 10 Days #20 tablet 12/08/22 Amoxic-Pot Clav 875-125Mg 1 tab PO Q12HR #14 tab 11/29/23 [Augmentin 875-125] HYDROcodone/APAP 10-325MG [[place] 1 tab PO Q6HR PRN 3 Days #12 tab 11/29/23 10-325] Ondansetron Odt [Zofran Odt] 4 mg PO Q8HR PRN #10 tab 11/29/23 Allergies Allergy/AdvReac Type Severity Reaction Status Date / Time No Known Allergies Allergy Verified 03/18/24 17:54 Review of Systems ROS Other: All systems not noted in ROS Statement are negative. <Basia Santiago - Last Filed: 03/18/24 18:06> ROS Other: All systems not noted in ROS Statement are negative. <Parker Huffman - Last Filed: 03/18/24 22:45> ROS Statement: Those systems with pertinent positive or pertinent negative responses have been documented in the HPI. Review of Systems: CONST: Denies fever EYES: Denies blurry vision ENT: Denies nasal congestion C/V: Denies Chest pain RESP: Denies shortness of breath GI: Denies abdominal pain : Denies dysuria SKIN: Denies rash. MSK: Denies joint pain. NEURO: Denies headache (Parker Huffman) Past Medical History Past Medical History: Diabetes Mellitus Additional Past Medical History / Comment(s): BACK PAIN, DMII History of Any Multi-Drug Resistant Organisms: None Reported Past Surgical History: Appendectomy Past Anesthesia/Blood Transfusion Reactions: No Reported Reaction Past Psychological History: ADD/ADHD, Bipolar Smoking Status: Former smoker Past Alcohol Use History: Occasional Past Drug Use History: Marijuana - Past Family History Mother Family Medical History: Diabetes Mellitus <Basia Santiago - Last Filed: 03/18/24 18:06> General Exam Limitations: no limitations <Basia Santiago - Last Filed: 03/18/24 18:06> <Parker Huffman - Last Filed: 03/18/24 22:45> - General Exam Comments Initial Comments: Visual Physical Exam Vital signs reviewed General: Well-appearing, nontoxic, no acute distress. Head: Normocephalic, atraumatic Eyes: PERRLA, EOMI ENT: Airway patent Chest: Nonlabored breathing Skin: No visual rash, normal skin tone Neuro: Alert and oriented 3 Musculoskeletal: No gross abnormalities (Basia Santiago) General: Appears in no acute distress. HEAD: Normal with no signs of head trauma. EYES: PERRLA, EOMI, conjunctiva normal, no discharge. ENT: Hearing grossly intact, normal oropharynx. RESPIRATORY: Clear breath sounds bilaterally. No wheezes, rales, or rhonchi. C/V: Regular rate and rhythm. S1 and S2 auscultated, no edema, peripheral pulses 2+ and intact throughout ABD: Abd is soft, nontender, nondistended EXT: Normal range of motion, no obvious deformity SKIN: No rashes or lesions observed on exposed skin. NEURO: Alert and oriented x 4. (Parker Huffman) Course Vital Signs 03/18/24 03/18/24 17:54 20:45 Temperature 98.2 F Pulse Rate 99 79 Respiratory 18 18 Rate Blood Pressure 139/76 103/68 O2 Sat by Pulse 100 100 Oximetry Medical Decision Making <Basia Santiago - Last Filed: 03/18/24 18:06> - Lab Data Result diagrams: 03/18/24 18:43 03/18/24 18:43 <Parker Huffman - Last Filed: 03/18/24 22:45> - Medical Decision Making I completed the quick note portion of this chart signed Basia Santiago PA-C (Basia Santiago) Was pt. sent in by a medical professional or institution ([facility], SHOT CORE DRILL OPERATOR HELPER, urgent care, hospital, or care home...) When possible be specific @ -No Did you speak to anyone other than the patient for history (EMS, parent, family, police, friend...)? What history was obtained from this source @ -No Did you review nursing and triage notes (agree or disagree)? Why? @ -I reviewed and agree with nursing and triage notes Were old charts reviewed (outside hosp., previous admission, EMS record, old EKG, old radiological studies, urgent care reports/EKG's, care home records)? Report findings @ -No old charts were reviewed Differential Diagnosis (chest pain, altered mental status, abdominal pain women, abdominal pain men, vaginal bleeding, weakness, fever, dyspnea, syncope, headache, dizziness, GI bleed, back pain, seizure, CVA, palpatations, mental health, musculoskeletal)? @ -Electrolyte abnormality, hypoglycemia, infection. This list is not all inclusive. EKG interpreted by me (3pts min.). @ -None done X-rays interpreted by me (1pt min.). @ -Chest x-ray reveals no obvious acute cardiopulmonary process. CT interpreted by me (1pt min.). @ -None done U/S interpreted by me (1pt. min.). @ -None done What testing was considered but not performed or refused? (CT, X-rays, U/S, labs)? Why? @ -None What meds were considered but not given or refused? Why? @ -None Did you discuss the management of the patient with other professionals (professionals i.e. , PA, SHOT CORE DRILL OPERATOR HELPER, lab, RT, psych nurse, psychosocial rehabilitation counselor, supervisor belt and link assembly, teacher, chief lending officer, case management coordinator)? Give summary @ -No Was smoking cessation discussed for >3mins.? @ -No Was critical care preformed (if so, how long)? @ -No Were there social determinants of health that impacted care today? How? ( Homelessness, low income, unemployed, alcoholism, drug addiction, transportation, low edu. Level, literacy, decrease access to med. care, detention, rehab)? @ -No Was there de-escalation of care discussed even if they declined (Discuss DNR or withdrawal of care, Hospice)? DNR status @ -No What co-morbidities impacted this encounter? (DM, HTN, Smoking, COPD, CAD, Cancer, CVA, ARF, Chemo, Hep., AIDS, mental health diagnosis, sleep apnea, morbid obesity)? @ -Diabetes Was patient admitted / discharged? Hospital course, mention meds given and route, prescriptions, significant lab abnormalities, going to OR and other pertinent info. @ -Based on patient's presentation and physical exam, presents emergency department complaining of more than normal blood sugars however they have been pretty stable in the 80s per patient. She is on long-acting Lantus once in the morning only. Blood sugar upon arrival was 141. She has no symptoms but wants to be evaluated. Vitals are within acceptable limits. She is complaining of a mild sore throat and congestion. No other acute complaints. Laboratory studies remarkable for normal blood sugar. Viral swabs negative. Chest x-ray unremarkable. On reevaluation, blood sugar remains within acceptable limits. She would like to go home at this time and I believe it is reasonable. Discussed with her and she will only take half dose of her Lantus tomorrow and will contact her mine deputy Dr. Mancuso. She was in agreement this plan. Strict return precautions were discussed. I instructed the patient to follow up with their PCP in the next 1-3 days. I explained that the patient should return to the emergency department if they experience any worsening symptoms. Strict return precautions were discussed with the patient. The patient expressed understanding of these instructions. I answered all questions that the patient had. The patient was discharged home in good condition with their prescriptions and follow up information. Undiagnosed new problem with uncertain prognosis? @ -No Drug Therapy requiring intensive monitoring for toxicity (Heparin, Nitro, Insulin, Cardizem)? @ -No Were any procedures done? @ -No Diagnosis/symptom? @ -Diabetes, Acute, or Chronic, or Acute on Chronic? @ -Acute Uncomplicated (without systemic symptoms) or Complicated (systemic symptoms)? @ -Uncomplicated Side effects of treatment? @ -No Exacerbation, Progression, or Severe Exacerbation? @ -No Poses a threat to life or bodily function? How? (Chest pain, [place], AL, pneumonia, PE, COPD, DKA, ARF, appy, cholecystitis, CVA, Diverticulitis, Homicidal, Suicidal, threat to staff... and all critical care pts) @ -Unlikely at this time (Parker Huffman) - Lab Data Lab Results 03/18/24 03/18/24 03/18/24 Range/Units 17:58 18:43 18:43 WBC 9.5 (3.8-10.6) k/uL RBC 4.54 (3.80-5.40) m/uL Hgb 14.0 (11.4-16.0) gm/dL Hct 41.6 (34.0-46.0) % MCV 91.6 (80.0-100.0) fL MCH 30.8 (25.0-35.0) pg MCHC 33.6 (31.0-37.0) g/dL RDW 12.2 (11.5-15.5) % Plt Count 360 (150-450) k/uL MPV 7.5 Neutrophils % 72 % Lymphocytes % 20 % Monocytes % 4 % Eosinophils % 2 % Basophils % 0 % Neutrophils # 6.8 (1.3-7.7) k/uL Lymphocytes # 1.9 (1.0-4.8) k/uL Monocytes # 0.4 (0-1.0) k/uL Eosinophils # 0.2 (0-0.7) k/uL Basophils # 0.0 (0-0.2) k/uL Sodium 136 L (137-145) mmol/L Potassium 3.8 (3.5-5.1) mmol/L Chloride 102 (98-107) mmol/L Carbon Dioxide 24 (22-30) mmol/L Anion Gap 10 mmol/L BUN 12 (7-17) mg/dL Creatinine 0.68 (0.52-1.04) mg/dL Est GFR (CKD-EPI)AfAm >90 (>60 ml/min/1.73 sqM) Est GFR (CKD-EPI)NonAf >90 (>60 ml/min/1.73 sqM) Glucose 128 H (74-99) mg/dL POC Glucose (mg/dL) 141 H (70-110) mg/dL POC Glu [employer] ID Kari Purdy Calcium 9.1 (8.4-10.2) mg/dL Magnesium 1.6 (1.6-2.3) mg/dL Total Bilirubin 0.4 (0.2-1.3) mg/dL AST 28 (14-36) U/L ALT 40 H (4-34) U/L Alkaline Phosphatase 66 (38-126) U/L Total Protein 7.3 (6.3-8.2) g/dL Albumin 4.6 (3.5-5.0) g/dL Urine Color Urine Appearance (Clear) Urine pH (5.0-8.0) Ur Specific Datil (1.001-1.035) Urine Protein (Negative) Urine Glucose (UA) (Negative) Urine Ketones (Negative) Urine Blood (Negative) Urine Nitrite (Negative) Urine Bilirubin (Negative) Urine Urobilinogen (<2.0) mg/dL Ur Leukocyte Esterase (Negative) Urine RBC (0-5) /hpf Urine WBC (0-5) /hpf Ur Squamous Epith Cells (0-4) /hpf Urine Bacteria (None) /hpf Influenza Type A (PCR) (Not Detectd) Influenza Type B (PCR) (Not Detectd) RSV (PCR) (Not Detectd) SARS-CoV-2 (PCR) (Not Detectd) Group A Strep (PCR) (Not Detectd) 03/18/24 03/18/24 03/18/24 Range/Units 18:43 18:43 18:51 WBC (3.8-10.6) k/uL RBC (3.80-5.40) m/uL Hgb (11.4-16.0) gm/dL Hct (34.0-46.0) % MCV (80.0-100.0) fL MCH (25.0-35.0) pg MCHC (31.0-37.0) g/dL RDW (11.5-15.5) % Plt Count (150-450) k/uL MPV Neutrophils % % Lymphocytes % % Monocytes % % Eosinophils % % Basophils % % Neutrophils # (1.3-7.7) k/uL Lymphocytes # (1.0-4.8) k/uL Monocytes # (0-1.0) k/uL Eosinophils # (0-0.7) k/uL Basophils # (0-0.2) k/uL Sodium (137-145) mmol/L Potassium (3.5-5.1) mmol/L Chloride (98-107) mmol/L Carbon Dioxide (22-30) mmol/L Anion Gap mmol/L BUN (7-17) mg/dL Creatinine (0.52-1.04) mg/dL Est GFR (CKD-EPI)AfAm (>60 ml/min/1.73 sqM) Est GFR (CKD-EPI)NonAf (>60 ml/min/1.73 sqM) Glucose (74-99) mg/dL POC Glucose (mg/dL) (70-110) mg/dL POC Glu [employer] ID Calcium (8.4-10.2) mg/dL Magnesium (1.6-2.3) mg/dL Total Bilirubin (0.2-1.3) mg/dL AST (14-36) U/L ALT (4-34) U/L Alkaline Phosphatase (38-126) U/L Total Protein (6.3-8.2) g/dL Albumin (3.5-5.0) g/dL Urine Color Colorless Urine Appearance Cloudy H (Clear) Urine pH 5.5 (5.0-8.0) Ur Specific Datil 1.011 (1.001-1.035) Urine Protein Negative (Negative) Urine Glucose (UA) Negative (Negative) Urine Ketones Negative (Negative) Urine Blood Negative (Negative) Urine Nitrite Negative (Negative) Urine Bilirubin Negative (Negative) Urine Urobilinogen <2.0 (<2.0) mg/dL Ur Leukocyte Esterase Negative (Negative) Urine RBC 1 (0-5) /hpf Urine WBC 1 (0-5) /hpf Ur Squamous Epith Cells 16 H (0-4) /hpf Urine Bacteria Rare H (None) /hpf Influenza Type A (PCR) Not Detected (Not Detectd) Influenza Type B (PCR) Not Detected (Not Detectd) RSV (PCR) Not Detected (Not Detectd) SARS-CoV-2 (PCR) Not Detected (Not Detectd) Group A Strep (PCR) NOT DETECTED (Not Detectd) 03/18/24 Range/Units 20:03 WBC (3.8-10.6) k/uL RBC (3.80-5.40) m/uL Hgb (11.4-16.0) gm/dL Hct (34.0-46.0) % MCV (80.0-100.0) fL MCH (25.0-35.0) pg MCHC (31.0-37.0) g/dL RDW (11.5-15.5) % Plt Count (150-450) k/uL MPV Neutrophils % % Lymphocytes % % Monocytes % % Eosinophils % % Basophils % % Neutrophils # (1.3-7.7) k/uL Lymphocytes # (1.0-4.8) k/uL Monocytes # (0-1.0) k/uL Eosinophils # (0-0.7) k/uL Basophils # (0-0.2) k/uL Sodium (137-145) mmol/L Potassium (3.5-5.1) mmol/L Chloride (98-107) mmol/L Carbon Dioxide (22-30) mmol/L Anion Gap mmol/L BUN (7-17) mg/dL Creatinine (0.52-1.04) mg/dL Est GFR (CKD-EPI)AfAm (>60 ml/min/1.73 sqM) Est GFR (CKD-EPI)NonAf (>60 ml/min/1.73 sqM) Glucose (74-99) mg/dL POC Glucose (mg/dL) 79 (70-110) mg/dL POC Glu [employer] ID [facility] Calcium (8.4-10.2) mg/dL Magnesium (1.6-2.3) mg/dL Total Bilirubin (0.2-1.3) mg/dL AST (14-36) U/L ALT (4-34) U/L Alkaline Phosphatase (38-126) U/L Total Protein (6.3-8.2) g/dL Albumin (3.5-5.0) g/dL Urine Color Urine Appearance (Clear) Urine pH (5.0-8.0) Ur Specific Datil (1.001-1.035) Urine Protein (Negative) Urine Glucose (UA) (Negative) Urine Ketones (Negative) Urine Blood (Negative) Urine Nitrite (Negative) Urine Bilirubin (Negative) Urine Urobilinogen (<2.0) mg/dL Ur Leukocyte Esterase (Negative) Urine RBC (0-5) /hpf Urine WBC (0-5) /hpf Ur Squamous Epith Cells (0-4) /hpf Urine Bacteria (None) /hpf Influenza Type A (PCR) (Not Detectd) Influenza Type B (PCR) (Not Detectd) RSV (PCR) (Not Detectd) SARS-CoV-2 (PCR) (Not Detectd) Group A Strep (PCR) (Not Detectd) Disposition <Basia Santiago - Last Filed: 03/18/24 18:06> Is patient prescribed a controlled substance at d/c from ED?: No Time of Disposition: 20:25 <Parker Huffman - Last Filed: 03/18/24 22:45> Clinical Impression: Diabetes Disposition: HOME SELF-CARE Condition: Good Instructions (If sedation given, give patient instructions): What to Do if Your Blood Sugar is Low (ED), Diabetes and Nutrition (ED) Additional Instructions: Use half dose insulin tomorrow, Lantus 4 units instead of your normal 8 units of [address]antus. Contact Dr. Jeter your mine deputy. Return if worsening symptoms or continued low blood sugars. Referrals: Manpreet Tirado DO [Primary Care Provider] - 1-2 days
[2024-03-18 18:52] LABS: Basophils % (A) 0 %; Eosinophils # (A) 0.2 k/uL (0-0.7); Eosinophils % (A) 2 %; HCT 41.6 % (34.0-46.0); Lymphocytes # (A) 1.9 k/uL (1.0-4.8); Lymphocytes % (A) 20 %; MCH 30.8 pg (25.0-35.0); MCHC 33.6 g/dL (31.0-37.0); MCV 91.6 fL (80.0-100.0); Mean Platelet Volume 7.5; Monocytes # (A) 0.4 k/uL (0-1.0); Monocytes % (A) 4 %; Neutrophils # (A) 6.8 k/uL (1.3-7.7); Neutrophils % (A) 72 %; Platelet Count 360 k/uL (150-450); RBC 4.54 m/uL (3.80-5.40); RDW 12.2 % (11.5-15.5); WBC 9.5 k/uL (3.8-10.6)
[2024-03-18 19:04] LABS: ALT 40 U/L (4-34); AST 28 U/L (14-36); African American GFR (CKD) >90 (>60 ml/min/1.73 sqM); Albumin 4.6 g/dL (3.5-5.0); Alkaline Phosphatase 66 U/L (38-126); Anion Gap 10 mmol/L; Blood Urea Nitrogen 12 mg/dL (7-17); Calcium 9.1 mg/dL (8.4-10.2); Carbon Dioxide 24 mmol/L (22-30); Chloride 102 mmol/L (98-107); Glucose 128 mg/dL (74-99); Magnesium 1.6 mg/dL (1.6-2.3); Non-African American GFR(CKD) >90 (>60 ml/min/1.73 sqM); Potassium 3.8 mmol/L (3.5-5.1); Sodium 136 mmol/L (137-145); Total Bilirubin 0.4 mg/dL (0.2-1.3); Total Protein 7.3 g/dL (6.3-8.2)
[2024-03-18 19:09] LABS: Appearance,Urine Cloudy (Clear); Bacteria,Urine Rare /hpf; Bilirubin,Urine Negative (Negative); Blood,Urine Negative (Negative); Color,Urine Colorless; Glucose,Urine (UA) Negative (Negative); Ketones,Urine Negative (Negative); Leukocyte Esterase,Urine Negative (Negative); Nitrite,Urine Negative (Negative); PH, Urine 5.5 (5.0-8.0); Protein,Urine Negative (Negative); RBC,Urine 1 /hpf (0-5); Specific Gravity,Urine 1.011 (1.001-1.035); Squamous Epithelial Cell,Urine 16 /hpf (0-4); Urobilinogen,Urine <2.0 mg/dL (<2.0); WBC,Urine 1 /hpf (0-5)
--- NOTE | 2024-03-18 19:47 | XR ---
EXAMINATION TYPE: XR chest 2V DATE OF EXAM: 03/18/2024 7:42 PM COMPARISON: Chest radiographs from 04/27/2011. CLINICAL INDICATION: Female, 33 years old with history of cough; H TECHNIQUE: XR chest 2V Frontal and lateral views of the chest. FINDINGS: Lungs/Pleura: There is no evidence of pleural effusion, focal consolidation, or pneumothorax. Pulmonary vascularity: Unremarkable. Heart/mediastinum: Cardiomediastinal silhouette is unremarkable. Musculoskeletal: No acute osseous pathology. IMPRESSION: No acute cardiopulmonary disease/process. [facility], , 03/18/2024 7:45 PM
[2024-03-18 20:05] LABS: Glucose,Whole Blood 79 mg/dL (70-110)
[2024-03-18 20:48] VITALS: BP 103/68; PULSE 79
== END 2024-03-18 20:49 | disposition home or self-care (01) ==
LOC: EC 17:49
DX: E11.649 Type 2 diabetes mellitus with hypoglycemia without coma (principal); Z79.4 Long term (current) use of insulin; Z79.84 Long term (current) use of oral hypoglycemic drugs; Z87.891 Personal history of nicotine dependence; Z11.52 Encounter for screening for COVID-19
CPT/HCPCS: 36415; 71046; 80053; 81001; 83735; 85025; 87636; 87651; 99283; 99285

== ENCOUNTER 2024-12-01 18:08 | Emergency (ER) | payer OTHER ==
--- NOTE | 2024-12-01 18:44 | ED ---
Chest Pain HPI - General Chief Complaint: Chest Pain Stated Complaint: chest pain Time Seen by Provider: 12/01/24 18:38 Source: patient, RN notes reviewed Mode of arrival: ambulatory Limitations: no limitations - History of Present Illness Initial Comments: 33-year-old female with history of diabetes and anxiety presenting for chest pain x 2 hours with associated heart palpitations. States she was at work when she suddenly began to feel heart palpitations and intermittent, dull chest pain all throughout her chest. Pain does not radiate. States she also feels short of breath. States she has had this once before after a surgery. Denies any history of cardiac issues. Denies fevers, nausea, vomiting, cough, abdominal pain. Denies chance of . - Related Data Home Medications Medication Instructions Recorded Confirmed Glimepiride [Amaryl] 1 mg PO BID 12/14/22 12/14/22 Levothyroxine Sodium [Synthroid] 25 mcg PO DAILY 12/14/22 12/14/22 Previous Rx's Medication Instructions Recorded metFORMIN HCL 500 mg PO BID 10 Days #20 tablet 12/08/22 Amoxic-Pot Clav 875-125Mg 1 tab PO Q12HR #14 tab 11/29/23 [Augmentin 875-125] HYDROcodone/APAP 10-325MG [Tinnie 1 tab PO Q6HR PRN 3 Days #12 tab 11/29/23 10-325] Ondansetron Odt [Zofran Odt] 4 mg PO Q8HR PRN #10 tab 11/29/23 Allergies Allergy/AdvReac Type Severity Reaction Status Date / Time No Known Allergies Allergy Verified 12/01/24 18:11 Review of Systems ROS Statement: Those systems with pertinent positive or pertinent negative responses have been documented in the HPI. ROS Other: All systems not noted in ROS Statement are negative. EKG Findings - EKG Results: EKG: interpreted by ERMD (EKG reveals sinus tachycardia with inverted T wave in lead III. Ventricular rate 110 bpm, SD interval 148, QRS duration 100, QT/QTc 312/377) Past Medical History Past Medical History: Diabetes Mellitus Additional Past Medical History / Comment(s): BACK PAIN, DMII History of Any Multi-Drug Resistant Organisms: None Reported Past Surgical History: Appendectomy Past Anesthesia/Blood Transfusion Reactions: No Reported Reaction Past Psychological History: ADD/ADHD, Bipolar Smoking Status: Former smoker Past Alcohol Use History: Occasional Past Drug Use History: Marijuana - Past Family History Mother Family Medical History: Diabetes Mellitus General Exam Limitations: no limitations General appearance: alert, in no apparent distress Head exam: Present: atraumatic, normocephalic, normal inspection Eye exam: Present: normal appearance, PERRL, EOMI. Absent: scleral icterus, conjunctival injection, periorbital swelling ENT exam: Present: normal exam, mucous membranes moist Neck exam: Present: normal inspection. Absent: tenderness, meningismus, lymphadenopathy Respiratory exam: Present: normal lung sounds bilaterally. Absent: respiratory distress, wheezes, rales, rhonchi, stridor Cardiovascular Exam: Present: normal rhythm, tachycardia, normal heart sounds. Absent: systolic murmur, diastolic murmur, rubs, gallop, clicks GI/Abdominal exam: Present: soft, normal bowel sounds. Absent: distended, tenderness, guarding, rebound, rigid Neurological exam: Present: alert, oriented X3 Psychiatric exam: Present: normal affect, normal mood Skin exam: Present: warm, dry, intact, normal color. Absent: rash Course Vital Signs 12/01/24 12/01/24 12/01/24 18:09 18:11 18:30 Temperature 98.0 F Pulse Rate 132 H 118 H Respiratory 18 20 18 Rate Blood Pressure 140/80 124/73 O2 Sat by Pulse 100 100 Oximetry 12/01/24 12/01/24 19:00 20:18 Temperature Pulse Rate 100 94 Respiratory 16 16 Rate Blood Pressure 100/66 111/68 O2 Sat by Pulse 99 99 Oximetry Chest Pain MDM - MDM Was pt. sent in by a medical professional or institution (, [place], [facility], urgent care, hospital, or halfway...) When possible be specific @ -No Did you speak to anyone other than the patient for history (EMS, parent, family, police, friend...)? What history was obtained from this source @ -No Did you review nursing and triage notes (agree or disagree)? Why? @ -I reviewed and agree with nursing and triage notes Were old charts reviewed (outside hosp., previous admission, EMS record, old EKG, old radiological studies, urgent care reports/EKG's, halfway records)? Report findings @ -No old charts were reviewed Differential Diagnosis (chest pain, altered mental status, abdominal pain women, abdominal pain men, vaginal bleeding, weakness, fever, dyspnea, syncope, headache, dizziness, GI bleed, back pain, seizure, CVA, palpatations, mental health, musculoskeletal)? @ -[not a differential Chest Pain: Stable Angina, Unstable Angina, STEMI, NSTEMI Aortic Dissection, Pneumothorax, Musculoskeletal, Esophageal Spasm GERD, Cholecystitis, Pancreatitis, Zoster, this is not meant to be an all-inclusive list. EKG interpreted by me (3pts min.). @ -As above X-rays interpreted by me (1pt min.). @ -Chest x-ray reveals no acute process CT interpreted by me (1pt min.). @ -None done U/S interpreted by me (1pt. min.). @ -None done What testing was considered but not performed or refused? (CT, X-rays, U/S, labs)? Why? @ -None What meds were considered but not given or refused? Why? @ -None Did you discuss the management of the patient with other professionals (professionals i.e. , [facility], [facility], lab, RT, psych nurse, social media marketing manager, dewaterer operator, teacher, third officer, cyanide case hardener)? Give summary @ -No Was smoking cessation discussed for >3mins.? @ -No Was critical care preformed (if so, how long)? @ -No Were there social determinants of health that impacted care today? How? (Homelessness, low income, unemployed, alcoholism, drug addiction, transportation, low edu. Level, literacy, decrease access to med. care, [facility], rehab)? @ -No Was there de-escalation of care discussed even if they declined (Discuss DNR or withdrawal of care, Hospice)? DNR status @ -No What co-morbidities impacted this encounter? (DM, HTN, Smoking, COPD, CAD, Cancer, CVA, ARF, Chemo, Hep., AIDS, mental health diagnosis, sleep apnea, morbid obesity)? @ -None Was patient admitted / discharged? Hospital course, mention meds given and route, prescriptions, significant lab abnormalities, going to OR and other pert inent info. @ - discharge. 33-year-old female presenting for chest pain x 2 hours with associated heart palpitations. Patient is tachycardic at 132 bpm. Appears anxious, therefore is provided with dose of Ativan. EKG reveals inverted T wave in leads III which can be a normal finding. Lab work largely unremarkable. Normal white blood cell count of 8, normal D-dimer 0.36, troponin undetectable, TSH within normal limits. Urine negative, urinalysis and urine drug screen unremarkable. Chest x-ray reveals no acute process. Upon reevaluation, heart rate reduces to 94 bpm and patient reports complete resolution of symptoms. Heart score is 1. Repeat troponin negative. Discussed results with patient. I do not identify any emergent etiology causing symptoms today. I highly suspect symptoms are secondary to anxiety. Appropriate return parameters and close follow-up care discussed with patient and she is agreeable to plan. Case was discussed with my ED attending Dr. Acosta. Undiagnosed new problem with uncertain prognosis? @ -No Drug Therapy requiring intensive monitoring for toxicity (Heparin, Nitro, Insulin, Cardizem)? @ -No Were any procedures done? @ -No Diagnosis/symptom? @ -Chest pain, anxiety Acute, or Chronic, or Acute on Chronic? @ -Acute Uncomplicated (without systemic symptoms) or Complicated (systemic symptoms)? @ -Uncomplicated Side effects of treatment? @ -No Exacerbation, Progression, or Severe Exacerbation? @ -No Poses a threat to life or bodily function? How? (Chest pain, [place], [place], pneumonia, PE, COPD, DKA, ARF, appy, cholecystitis, CVA, Diverticulitis, Homicidal, Suicidal, threat to staff... and all critical care pts) @ -Unlikely Disposition Clinical Impression: Chest pain, Anxiety Disposition: HOME SELF-CARE Condition: Stable Instructions (If sedation given, give patient instructions): Chest Pain (ED) Additional Instructions: Please return to the Emergency Department if symptoms worsen or any other concerns. Is patient prescribed a controlled substance at d/c from ED?: No Referrals: Manpreet Tirado DO [Primary Care Provider] - 1-2 days Time of Disposition: 22:01
[2024-12-01 18:46] LABS: Glucose,Whole Blood 128 mg/dL (70-110)
[2024-12-01 18:54] LABS: Basophils # (A) 0.03 10*3/uL (0.00-0.10); Basophils % (A) 0.4 %; Eosinophils # (A) 0.15 10*3/uL (0.04-0.35); Eosinophils % (A) 1.8 %; HCT 40.3 % (37.2-46.3); HGB 14.3 g/dL (12.0-15.0); Lymphocytes # (A) 1.01 10*3/uL (0.90-5.00); Lymphocytes % (A) 12.1 %; MCH 31.8 pg (27.0-32.0); MCHC 35.5 g/dL (32.0-37.0); MCV 89.6 fL (80.0-97.0); Monocytes # (A) 0.49 10*3/uL (0.20-1.00); Monocytes % (A) 5.9 %; Neutrophils # (A) 6.65 10*3/uL (1.80-7.70); Neutrophils % (A) 79.4 %; Platelet Count 299 10*3/uL (140-440); RBC 4.50 10*6/uL (4.10-5.20); RDW 11.9 % (11.5-14.5); WBC 8.36 10*3/uL (4.50-10.00)
[2024-12-01 19:02] LABS: ALT 30 U/L (4-34); AST 28 U/L (14-36); African American GFR (CKD) >90 (>60 ml/min/1.73 sqM); Albumin 4.8 g/dL (3.5-5.0); Alkaline Phosphatase 74 U/L (38-126); Blood Urea Nitrogen 6 mg/dL (7-17); Calcium 9.8 mg/dL (8.4-10.2); Carbon Dioxide 21 mmol/L (22-30); Chloride 102 mmol/L (98-107); Glucose 142 mg/dL (74-99); Non-African American GFR(CKD) >90 (>60 ml/min/1.73 sqM); Total Protein 7.5 g/dL (6.3-8.2)
[2024-12-01 19:07] LABS: INR 0.9 (<1.2); Partial Thromboplastin Time 24.1 sec (22.0-30.0); Prothrombin Time 10.5 sec (10.0-12.5)
[2024-12-01 19:10] LABS: Anion Gap 14 mmol/L; Potassium 3.9 mmol/L (3.5-5.1); Sodium 137 mmol/L (137-145)
[2024-12-01] MEDS: LORazepam 1 MG/0.5 ML VIAL IV STA (19:35)
[2024-12-01 19:47] LABS: Bilirubin,Urine Negative (Negative); Blood,Urine Negative (Negative); Color,Urine Colorless; Glucose,Urine (UA) Negative (Negative); Ketones,Urine Negative (Negative); Leukocyte Esterase,Urine Negative (Negative); Nitrite,Urine Negative (Negative); PH, Urine 6.5 (5.0-8.0); Protein,Urine Negative (Negative); Specific Gravity,Urine 1.004 (1.001-1.035); Urobilinogen,Urine <2.0 mg/dL (<2.0)
[2024-12-01 20:02] LABS: Barbiturate Screen,Urine Not Detected (NotDetected); Benzodiazepines Screen,Urine Not Detected (NotDetected); Opiate Screen,Urine Not Detected (NotDetected); Oxycodone Screen, Urine Not Detected (NotDetected); Phencyclidine Screen,Urine Not Detected (NotDetected); Tricyclic Antidepressant,Urine Not Detected (NotDetected); Urn Cannabinoid Scrn Not Detected (NotDetected)
[2024-12-01 20:20] VITALS: PULSE 94
--- NOTE | 2024-12-01 21:06 | XR ---
EXAMINATION TYPE: XR chest 2V DATE OF EXAM: 12/01/2024 6:52 PM COMPARISON: 03/18/2024 CLINICAL INDICATION: Female, 33 years old with history of chest pain, TECHNIQUE: XR chest 2V view(s) obtained. FINDINGS: The heart size is normal. The pulmonary vasculature is normal. Mild right lower lobe infiltrate is present. Correlate for atelectasis. Mild left basilar infiltrate may be present as well. IMPRESSION: 1. Clinical correlation for mild bibasilar atelectasis. [facility], Workstation: [facility], 12/01/2024 9:03 PM
[2024-12-01 21:20] LABS: Glucose,Whole Blood 98 mg/dL (70-110)
[2024-12-01 22:26] VITALS: BP 111/77; RESP 18; TEMP 98.1
== END 2024-12-01 22:25 | disposition home or self-care (01) ==
LOC: EC 18:08
DX: R07.9 Chest pain, unspecified (principal); F41.9 Anxiety disorder, unspecified; Z87.891 Personal history of nicotine dependence
CPT/HCPCS: 36415; 93005; 85379; 80053; 84443; 84484; 85025; 85610; 85730; 81003; 81025; 80306; 71046; 99285; 96374; J2060